=== PATIENT | male | born 1985 | race African-American/Black ===

== ENCOUNTER 2017-09-27 15:42 | Inpatient (IN) | payer OTHER ==
[2017-09-27 17:46] VITALS: BMI 22.5
--- NOTE | 2017-09-27 20:48 | HP ---
Admission ROS [facility] - [facility] Chief Complaint: 31 years old male seeking admission to Rehab. Allergies/Adverse Reactions: Allergies Allergy/AdvReac Type Severity Reaction Status Date / Time lactose Allergy Verified 09/27/17 20:17 FRUIT Allergy Uncoded 09/27/17 20:17 History of Present Illness: 31 years old male with a long history of alcohol and cocaine dependence is seeking admission to Rehab. Patient has been in Rehab at [facility]. This is his first admission to [facility]. He has medical history of hyperthyroidism, anxiety and depression. He denies suicide attempt and suicidal ideation at this time. Exam Limitations: No Limitations - Ebola screening Have you traveled outside of the country in the last 21 days: No (N) Have you had contact with anyone from an Ebola affected area: No Have you been sick,other than usual withdrawal symptoms: No Do you have a fever: No - Review of Systems Constitutional: No Symptoms Reported EENT: reports: No Symptoms Reported Respiratory: reports: No Symptoms reported Cardiac: reports: No Symptoms Reported GI: reports: No Symptoms Reported : reports: No Symptoms Reported Musculoskeletal: reports: No Symptoms Reported Integumentary: reports: No Symptoms Reported Neuro: reports: No Symptoms reported Endocrine: reports: No Symptoms Reported Hematology: reports: No Symptoms Reported Psychiatric: reports: No Sypmtoms Reported, Orientated x3 Other Systems: Reviewed and Negative Patient History - Patient Medical History Hx Anemia: No Hx Asthma: No Hx Chronic Obstructive Pulmonary Disease (COPD): No Hx Cancer: No Hx Cardiac Disorders: No Hx Congestive Heart Failure: No Hx Hypertension: No Hx Hypercholesterolemia: No HX Cerebrovascular Accident: No Hx Seizures: No Hx Diabetes: No Hx Gastrointestinal Disorders: No Hx Liver Disease: No Hx Genitourinary Disorders: No Hx Sexually Transmitted Disorders: No Hx Renal Disease (ESRD): No Hx Thyroid Disease: Yes (Hyperthroidism - Not on medication) Hx Human Immunodeficiency Virus (HIV): No (Negative August 2017) Hx Hepatitis C: No Hx Depression: Yes (Not on medication) Hx Suicide Attempt: No (Denies suicide attempt and suicidal ideation at this time) Hx Bipolar Disorder: Yes (Not on medicatyion) Hx Schizophrenia: No Other Medical History: ANXIETY, PTSD - Not on medication - Patient Surgical History Past Surgical History: Yes Hx Neurologic Surgery: No Hx Cataract Extraction: No Hx Cardiac Surgery: No Hx Lung Surgery: No Hx Abdominal Surgery: No Hx Appendectomy: No Hx Cholecystectomy: No Hx Genitourinary Surgery: No Hx Section: No Hx Orthopedic Surgery: Yes (LEFT HAND SURGERY JULY 2017) Hx Hysterectomy: No Anesthesia Reaction: No - PPD History Previous Implant?: Yes Documented Results: Negative w/o proof Implanted On Prior [facility] Admission?: No PPD to be Administered?: Yes - Reproductive History Patient is a Female of Child Bearing Age (11 -55 yrs old): No (Male) - Smoking Cessation Smoking history: Current every day smoker Have you smoked in the past 12 months: Yes Aproximately how many cigarettes per day: 3 Hx Chewing Tobacco Use: No Initiated information on smoking cessation: Yes 'Breaking Loose' booklet given: 09/27/17 - Substance & Tx. History Hx Alcohol Use: Yes Hx Substance Use: No Substance Use Type: Alcohol Hx Substance Use Treatment: Yes ([facility]) - Substances Abused Alcohol Route: Oral Frequency: Daily Amount used: 20 x 24 oz. of BEER Age of first use: 11 Date of Last Use: 09/26/17 Family Disease History - Family Disease History Family History: Denies Admission Physical Exam [facility] - Vital Signs Vital Signs: Vital Signs - 24 hr 09/27/17 17:43 Temperature 97.5 F L Pulse Rate 66 Respiratory 18 Rate Blood Pressure 134/86 - Physical General Appearance: Yes: No Apparent Distress, Appropriately Dressed HEENTM: Yes: Within Normal Limits, EOMI, Normal ENT Inspection, Normocephalic, Normal Voice, MARTI Respiratory: Yes: Lungs Clear, Normal Breath Sounds, No Respiratory Distress Neck: Yes: Supple Breast: Yes: Breast Exam Deferred Cardiology: Yes: Regular Rhythm, Regular Rate Abdominal: Yes: Normal Bowel Sounds Genitourinary: Yes: Within Normal Limits Back: Yes: Normal Inspection Musculoskeletal: Yes: Within Normal Limits Extremities: Yes: Normal Inspection Neurological: Yes: Alert, Normal Mood/Affect Integumentary: Yes: Warm Lymphatic: Yes: Within Normal Limits - Diagnostic (1) Uncomplicated alcohol dependence Current Visit: Yes Status: Chronic (2) Depression Current Visit: Yes Status: Chronic Qualifiers: Depression Type: unspecified Qualified Code(s): F32.9 - Major depressive disorder, single episode, unspecified (3) Anxiety Current Visit: Yes Status: Chronic (4) Hyperthyroidism Current Visit: Yes Status: Chronic S Breath Alcohol Content Breath Alcohol Content: 0 Urine Drug Screen - Results Drug Screen Negative: No Urine Drug Screen Results: THC-Marijuana, LENCHO-Cocaine Inpatient Rehab Admission - Initial Determination Are CD services needed?: No Free of communicable disease: Yes Not in need of hospitalization: Yes - Rehab Admission Criteria Previous failed treatment: Yes Poor recovery environment: Yes Comorbidities: Yes Lacks judgement: Yes Patient is meeting Inpatient Rehab admission criteria:: No
[2017-09-27] MEDS ORDERED: MAG HYDROX/AL HYDROX/SIMETH 30 ML UNIT-DOSE CUP PO PRN (22:51)
[2017-09-27] MEDS ORDERED: ACETAMINOPHEN 325 MG TABLET (FP) PO PRN (22:51)
[2017-09-27] MEDS ORDERED: P-EPHED 60MG/TRIPROLIDI 2.5MG TABLET PO PRN (22:51)
[2017-09-27] MEDS ORDERED: NICOTINE POLACRILEX 2 MG GUM BC PRN (22:51)
[2017-09-27] MEDS ORDERED: MAGNESIUM HYDROX 2400MG/30ML ORAL SUSPENSION 30 ML CUP PO PRN (22:51)
[2017-09-27] MEDS ORDERED: guaiFENesin/D-METHORPHAN HB 10 ML UNIT-DOSE CUPS PO PRN (22:51)
[2017-09-27] MEDS ORDERED: LOPERAMIDE HCL 2 MG CAPSULE PO PRN (22:51)
[2017-09-27] MEDS ORDERED: MENTHOL/PHENOL 1 EACH UD MM PRN (22:51)
[2017-09-27] MEDS ORDERED: IBUPROFEN 400 MG TABLET (FP) PO PRN (22:51)
[2017-09-27] MEDS ORDERED: MAGNESIUM CITRATE 300 ML BOTTLE PO PRN (22:51)
[2017-09-27] MEDS ORDERED: TUBERCULIN PPD 5 TU/0.1ML VIAL ID ONE (23:47)
[2017-09-28] MEDS: NICOTINE 14 MG/24 HOURS TOPICAL PATCH TD SCH (10:01)
[2017-09-28] MEDS: PRENATAL VITAMINS W/ FOLIC ACID TABLET (FP) PO SCH (10:01)
[2017-09-28 10:26] LABS: HEMATOCRIT 39.3 % (35.4-49); MCHC 33.2 g/dl (32.0-35.9); MEAN CELL VOLUME 87.2 fl (80-96); MEAN PLT VOLUME 8.8 fl (7.5-11.1); PLATELET COUNT 197 K/MM3 (134-434); WHITE BLOOD COUNT 3.9 K/mm3 (4.0-10.0)
[2017-09-28 10:47] LABS: CHLORIDE 103 mmol/L (98-107); POTASSIUM 4.3 mmol/L (3.5-5.1); SODIUM 139 mmol/L (136-145)
[2017-09-28 10:53] LABS: URINE APPEARANCE CLEAR; URINE BILIRUBIN NEGATIVE (<2.0 mg/dL); URINE COLOR LTYELLOW; URINE GLUCOSE (UA) NEGATIVE (NEGATIVE); URINE KETONE NEGATIVE (NEGATIVE); URINE LEUK ESTERASE TRACE (NEGATIVE); URINE NITRITE NEGATIVE (NEGATIVE); URINE PROTEIN NEGATIVE (NEGATIVE); URINE UROBILINOGEN NEGATIVE mg/dL (0.2-1.0)
[2017-09-28 10:57] LABS: EPI CELLS RARE /HPF (FEW); URINE MUCUS RARE
[2017-09-28 11:13] LABS: ALBUMIN 3.5 g/dl (3.4-5.0); ALK PHOS 55 U/L (45-117); ANION GAP 4 (8-16); BILIRUBIN,TOTAL 0.3 mg/dL (0.2-1.0); BLOOD UREA NITROGEN 15 mg/dL (7-18); CALCIUM 9.1 mg/dL (8.5-10.1); CO2 32 mmol/L (21-32); CREATININE 1.3 mg/dL (0.7-1.3); GLUCOSE,RANDOM 81 mg/dL (74-106); SGOT/AST 24 U/L (15-37); SGPT/ALT 33 U/L (12-78); TOT PROT 6.6 g/dl (6.4-8.2)
[2017-09-28] MEDS: MELATONIN 5 MG TABLETS PO PRN (21:46)
[2017-09-28] MEDS: THIAMINE HCL 100 MG TABLET (FP) PO SCH (21:46)
--- NOTE | 2017-09-29 08:56 | EKG ---
Test Reason : Blood Pressure : / mmHG Vent. Rate : 068 BPM Atrial Rate : 068 BPM P-R Int : 142 ms QRS Dur : 088 ms QT Int : 402 ms P-R-T Axes : 015 051 059 degrees QTc Int : 427 ms NORMAL SINUS RHYTHM NORMAL ECG NO PREVIOUS ECGS AVAILABLE Confirmed by PRABHAKAR GOTTI, LA ([id number]) on 09/29/2017 8:55:29 AM Referred By: Confirmed By:LA RADOFRD MD
[2017-09-29] MEDS: PRENATAL VITAMINS W/ FOLIC ACID TABLET (FP) PO SCH (10:12)
[2017-09-29] MEDS: NICOTINE 14 MG/24 HOURS TOPICAL PATCH TD SCH (10:13)
[2017-09-29] MEDS: MELATONIN 5 MG TABLETS PO PRN (21:43)
[2017-09-29] MEDS: THIAMINE HCL 100 MG TABLET (FP) PO SCH (21:44)
[2017-09-30] MEDS: NICOTINE 14 MG/24 HOURS TOPICAL PATCH TD SCH (09:57)
[2017-09-30] MEDS: PRENATAL VITAMINS W/ FOLIC ACID TABLET (FP) PO SCH (09:57)
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
[2017-09-30] MEDS: THIAMINE HCL 100 MG TABLET (FP) PO SCH (21:12)
[2017-09-30] MEDS: MELATONIN 5 MG TABLETS PO PRN (21:12)
[2017-09-30] MEDS ORDERED: QUEtiapine FUMARATE 200 MG TABLET PO SCH (22:00)
[2017-09-30] MEDS ORDERED: MIRTAZAPINE 15 MG TABLET (FP) PO SCH (22:00)
[2017-10-01 06:57] VITALS: BP 126/68; PULSE 70; TEMP 97.6
[2017-10-01] MEDS: NICOTINE 14 MG/24 HOURS TOPICAL PATCH TD SCH (10:38)
[2017-10-01] MEDS: PRENATAL VITAMINS W/ FOLIC ACID TABLET (FP) PO SCH (10:39)
== END 2017-10-01 12:33 | disposition left against medical advice (07) | DRG 770 ==
LOC: YASAS 15:42 → Y5N 19:06 → Y3W 21:57
PROVIDERS: ADMIT Psychiatry & Neurology Psychiatry; ATTEND Psychiatry & Neurology Psychiatry
PROC: HZ42ZZZ Group Counseling for Substance Abuse Treatment, Cognitive-Behavioral (ICD-10-PCS; principal; 2017-09-27)
DX: F11.20 Opioid dependence, uncomplicated (principal); F10.20 Alcohol dependence, uncomplicated; F14.20 Cocaine dependence, uncomplicated; F17.210 Nicotine dependence, cigarettes, uncomplicated; F31.9 Bipolar disorder, unspecified; F41.9 Anxiety disorder, unspecified; F32.9 Major depressive disorder, single episode, unspecified; E05.90 Thyrotoxicosis, unspecified without thyrotoxic crisis or storm
CPT/HCPCS: 36415; 80053; 81003; 81015; 85027; 86593; 93005; 93010

== ENCOUNTER 2019-11-30 14:50 | Inpatient (IN) | payer OTHER ==
--- NOTE | 2019-11-30 15:19 | BHS.RME ---
Substance Use & Tx History - Substance Use History Alcohol Substance amount: 3 beers x 24 ounce Frequency of use: Daily Substance route: Oral, Vaping (t) Cocaine-Crack Substance amount: $1000. Frequency of use: Daily Substance route: Smoking Date of Last Use: 11/30/19 Nicotine Substance amount: 3 cigs Frequency of use: Daily Substance route: Smoking Date of Last Use: 11/30/19 - Last Treatment Date of last treatment: 2018 rehab x 4 days Where was last treatment: Rehab Physical/Psych/Mental Status - Behavior General Behavior: Increased activity (restlessness, agitation) Eye Contact: Normal - Cooperativeness Cooperativeness: Cooperative - Thinking Thought Processes: Tight Thought content: Future oriented - Physical Health Problems Is patient presently having any pain?: No Does patient presently have any injuries (include location): No Does patient currently have a fever: No CIWA Nausea/Vomitin-No Nausea/No Vomiting Muscle Tremors: None Anxiety: 1-Mildly Anxious Agitation: 1-Slight > Activity Paroxysmal Sweats: No Perspiration Orientation: 0-Oriented Tacttile Disturbances: 0-None Auditory Disturbances: 1-Very Mild Visual Disturbances: 0-None Headache: 0-None Present CIWA-Ar Total Score: 3
--- OUTSIDE RECORDS SUMMARY | 2019-11-30 17:28 | XMS ---
:1985 Author Organization [facility] Support Name Relationship Address Phone claduine hernandez Unavailable [id number] [place] [address] Re-disclosure Warning The records that you are about to access may contain information from federally- assisted alcohol or drug abuse programs. If such information is present, then the following federally mandated warning applies: This information has been disclosed to you from records protected by federal confidentiality rules (42 CFR part 2). The federal rules prohibit you from making any further disclosure of this information unless further disclosure is expressly permitted by the written consent of the person to whom it pertains or as otherwise permitted by 42 CFR part 2. A general authorization for the release of medical or other information is NOT sufficient for this purpose. The Federal rules restrict any use of the information to criminally investigate or prosecute any alcohol or drug abuse patient.The records that you are about to access may contain highly sensitive health information, the redisclosure of which is protected by Article 27-F of the [facility] Public Health law. If you continue you may haveaccess to information: Regarding HIV / AIDS; Provided by facilities licensed or operated by the [facility] Office of Mental Health; or Provided by the [facility] Office for People With Developmental Disabilities. If such information is present, then the following [facility] mandated warning applies: This information has been disclosed to you from confidential records which are protected by state law. State law prohibits you from making any further disclosure of this information without the specific written consent of the person to whom it pertains, or as otherwise permitted by law. Any unauthorized further disclosure in violation of state law may result in a fine or fpc sentence or both. A general authorization for the release of medical or other information is NOT sufficient authorization for further disclosure. Allergies and Adverse Reactions Type Description Substance Reaction Status Data Source(s ) Drug allergy walnuts/almonds Drug allergy anaphylaxis Active eCW3 ([facility]) Drug allergy strawberries Drug allergy anaphylaxis Active eCW3 ([facility]) Drug allergy apples Drug allergy anaphylaxis Active eCW3 ([facility]) Drug allergy walnuts/almonds Drug allergy anaphylaxis Active eCW3 ([facility]) Drug allergy strawberries Drug allergy anaphylaxis Active eCW3 ([facility]) Drug allergy apples Drug allergy anaphylaxis Active eCW3 ([facility]) Drug allergy walnuts/almonds Drug allergy anaphylaxis Active eCW3 ([facility]) Drug allergy strawberries Drug allergy anaphylaxis Active eCW3 ([facility]) Drug allergy apples Drug allergy anaphylaxis Active eCW3 ([facility]) Drug allergy walnuts/almonds Drug allergy anaphylaxis Active eCW3 ([facility]) Drug allergy strawberries Drug allergy anaphylaxis Active eCW3 ([facility]) Drug allergy apples Drug allergy anaphylaxis Active eCW3 ([facility]) Drug allergy walnuts/almonds Drug allergy anaphylaxis Active eCW3 ([facility]) Drug allergy strawberries Drug allergy anaphylaxis Active eCW3 ([facility]) Drug allergy apples Drug allergy anaphylaxis Active eCW3 ([facility]) Drug allergy walnuts/almonds Drug allergy anaphylaxis Active eCW3 ([facility]) Drug allergy strawberries Drug allergy anaphylaxis Active eCW3 ([facility]) Drug allergy apples Drug allergy anaphylaxis Active eCW3 ([facility]) Drug allergy walnuts/almonds Drug allergy anaphylaxis Active eCW3 ([facility]) Drug allergy strawberries Drug allergy anaphylaxis Active eCW3 ([facility]) Drug allergy apples Drug allergy anaphylaxis Active eCW3 ([facility]) Drug allergy walnuts/almonds Drug allergy anaphylaxis Active eCW3 ([facility]) Drug allergy strawberries Drug allergy anaphylaxis Active eCW3 ([facility]) Drug allergy apples Drug allergy anaphylaxis Active eCW3 ([facility]) Drug allergy walnuts/almonds Drug allergy anaphylaxis Active eCW3 ([facility]) Drug allergy strawberries Drug allergy anaphylaxis Active eCW3 ([facility]) Drug allergy apples Drug allergy anaphylaxis Active eCW3 ([facility]) Drug allergy walnuts/almonds Drug allergy anaphylaxis Active eCW3 ([facility]) Drug allergy strawberries Drug allergy anaphylaxis Active eCW3 ([facility]) Drug allergy apples Drug allergy anaphylaxis Active eCW3 ([facility]) Drug allergy walnuts/almonds Drug allergy anaphylaxis Active eCW3 ([facility]) Drug allergy strawberries Drug allergy anaphylaxis Active eCW3 ([facility]) Drug allergy apples Drug allergy anaphylaxis Active eCW3 ([facility]) Drug allergy walnuts/almonds Drug allergy anaphylaxis Active eCW3 ([facility]) Drug allergy strawberries Drug allergy anaphylaxis Active eCW3 ([facility]) Drug allergy apples Drug allergy anaphylaxis Active eCW3 ([facility]) Drug allergy walnuts/almonds Drug allergy anaphylaxis Active eCW3 ([facility]) Drug allergy strawberries Drug allergy anaphylaxis Active eCW3 ([facility]) Drug allergy apples Drug allergy anaphylaxis Active eCW3 ([facility]) Encounters Encounter Providers Location Date Indications Data Source(s ) (DentTx) Dental [facility] 01/01/2019 eCW3 ([facility] A28 12:00:00 AM [facility] EST - Care) 01/01/2019 12:00:00 AM EST Est [facility] 11/19/2018 eCW3 ([id number] A28 12:00:00 AM [facility] y Indiv 30 min EDT - Care) 11/19/2018 12:00:00 AM EDT Outpatient [facility] 2018 eCW3 ([facility] A28 12:00:00 AM [facility] EDT - Care) 2018 12:00:00 AM EDT Outpatient [facility] 11/10/2018 eCW3 ([facility] A28 12:00:00 AM [facility] EDT - Care) 11/10/2018 12:00:00 AM EDT Outpatient [facility] 11/08/2018 eCW3 ([facility] A28 12:00:00 AM [facility] EDT - Care) 11/08/2018 12:00:00 AM EDT Outpatient [facility] 11/07/2018 eCW3 ([facility] 12:00:00 AM [facility] EDT - Care) 11/07/2018 12:00:00 AM EDT (DENTAL) Dental [facility] 10/23/2018 eCW3 ([facility] A28 12:00:00 AM [facility] EDT - Care) 10/23/2018 12:00:00 AM EDT Outpatient [facility] 10/13/2018 eCW3 ([facility] 12:00:00 AM [facility] EDT - Care) 10/13/2018 12:00:00 AM EDT Outpatient [facility] 09/11/2018 eCW3 ([facility] 12:00:00 AM [facility] EDT - Care) 09/11/2018 12:00:00 AM EDT Outpatient [facility] 09/10/2018 eCW3 ([facility] 12:00:00 AM [facility] EDT - Care) 09/10/2018 12:00:00 AM EDT Outpatient [facility] 08/08/2018 eCW3 ([facility] 12:00:00 AM [facility] EDT - Care) 08/08/2018 12:00:00 AM EDT Outpatient [facility] 06/03/2018 eCW3 ([facility] 12:00:00 AM [facility] EDT - Care) 06/03/2018 12:00:00 AM EDT New Psych [facility] 05/28/2018 eCW3 ([facility] 12:00:00 AM [facility] EDT - Care) 05/28/2018 12:00:00 AM EDT Immunizations Vaccine Date Status Description Data Source(s) New in 2011. IIV4 11/08/2018 10:13:00 completed eC W3 ([facility]T [facility]) New in 2011. IIV4 11/08/2018 10:13:00 completed eC W3 ([facility]) New in 2011. IIV4 11/08/2018 10:13:00 completed eC W3 ([facility]) New in 2011. IIV4 11/08/2018 10:13:00 completed eC W3 ([facility]) Hep A, adult 02/27/2012 01:54:32 completed eCW3 ([facility] EST [facility]) Hep A, adult 02/27/2012 01:54:32 completed eCW3 ([facility] EST [facility]) Hep A, adult 02/27/2012 01:54:32 completed eCW3 ([facility] EST [facility]) Tdap 02/27/2012 01:54:06 completed eCW3 ([facility] EST Health Care) Tdap 02/27/2012 01:54:06 completed eCW3 ([facility] EST Health Care) Tdap 02/27/2012 01:54:06 completed eCW3 ([facility] EST Health Care) Medications Medication Brand Start Product Dose Route Administrative Pharmacy [facility] Indications Reaction Description Data Name Date Form Instructions Instructions Source(s) Gauze UNK 06/02/ active Gauze eCW3 Bandages - 2020 Bandages - ([facility] 12:00: [facility] 00 AM Health EDT Care) Gauze Gauze 06/02/ active Gauze eCW3 Bandage 3" Bandag 2020 Bandage 3" - ([facility] - e 3" - 12:00: [facility] 00 AM Health EDT Care) Gauze UNK 06/02/ active Gauze eCW3 Bandages - 2020 Bandages - ([facility] 12:00: [facility] 00 AM Health EDT Care) Gauze Gauze 06/02/ active Gauze eCW3 Bandage 3" Bandag 2020 Bandage 3" - ([facility] - e 3" - 12:00: [facility] 00 AM Health EDT Care) Gauze UNK 06/02/ active Gauze eCW3 Bandages - 2020 Bandages - ([facility] 12:00: [facility] 00 AM Health EDT Care) Gauze UNK 06/02/ active Gauze eCW3 Bandages - 2020 Bandages - ([facility] 12:00: [facility] 00 AM Health EDT Care) Gauze UNK 06/02/ active Gauze eCW3 Bandages - 2020 Bandages - ([facility] 12:00: [facility] 00 AM Health EDT Care) Gauze UNK 06/02/ active Gauze eCW3 Bandages - 2020 Bandages - ( dson 12:00: [facility] 00 AM Health EDT Care) bacitracin Bacitr .0 active Bacitrac in eCW3 zinc 0.5 acin 2020 {appl Zinc 500 ([facility] UNT/MG Zinc 12:00: icati UNIT/GM [place] Topical 500 00 AM on} Health Ointment UNIT/G EDT Care) Bacitracin M Zinc 500 UNIT/GM Gauze UNK 06/02/ active Gauze eCW3 Bandages - 2020 Bandages - ([facility] 12:00: [facility] 00 AM Health EDT Care) Naproxen Naprox .0 active Naproxen 2 50 eCW3 250 MG Oral en 250 2019 {tabl MG ([facility] Tablet MG 12:00: et_wi [place] 00 AM th_fo Health EDT od_or Care) _milk } Gauze Gauze 06/02/ active Gauze eCW3 Bandage 3" Bandag 2020 Bandage 3" - ([facility] - e 3" - 12:00: [facility] 00 AM Health EDT Care) Gauze UNK 06/02/ active Gauze eCW3 Bandages - 2020 Bandages - ( dson 12:00: [facility] 00 AM Health EDT Care) Gauze UNK 06/02/ active Gauze eCW3 Bandages - 2020 Bandages - ( dson 12:00: [facility] 00 AM Health EDT Care) Gauze Gauze 06/02/ active Gauze eCW3 Bandage 3" Bandag 2020 Bandage 3" - ([facility] - e 3" - 12:00: [facility] 00 AM Health EDT Care) Gauze Gauze 06/02/ active Gauze eCW3 Bandage 3" Bandag 2020 Bandage 3" - ([facility] - e 3" - 12:00: [facility] 00 AM Health EDT Care) Gauze Gauze 06/02/ active Gauze eCW3 Bandage 3" Bandag 2020 Bandage 3" - ([facility] - e 3" - 12:00: [facility] 00 AM Health EDT Care) Gauze UNK 06/02/ active Gauze eCW3 Bandages - 2020 Bandages - ([facility] 12:00: [facility] 00 AM Health EDT Care) Gauze Gauze 06/02/ active Gauze eCW3 Bandage 3" Bandag 2020 Bandage 3" - ([facility] - e 3" - 12:00: [facility] 00 AM Health EDT Care) Gauze UNK 06/02/ active Gauze eCW3 Bandages - 2020 Bandages - ([facility] 12:00: [facility] 00 AM Health EDT Care) Gauze Gauze 06/02/ active Gauze eCW3 Bandage 3" Bandag 2020 Bandage 3" - ([facility] - e 3" - 12:00: [facility] 00 AM Health EDT Care) Gauze Gauze 06/02/ active Gauze eCW3 Bandage 3" Bandag 2020 Bandage 3" - ([facility] - e 3" - 12:00: [facility] 00 AM Health EDT Care) Gauze Gauze 06/02/ active Gauze eCW3 Bandage 3" Bandag 2020 Bandage 3" - ([facility] - e 3" - 12:00: [facility] 00 AM Health EDT Care) Gauze Gauze 06/02/ active Gauze eCW3 Bandage 3" Bandag 2020 Bandage 3" - ([facility] - e 3" - 12:00: [facility] 00 AM Health EDT Care) Nicotine 4 Nicotr 11/08/ active Nicotrol 10 eCW3 MG/ACTUAT ol 10 2019 MG ([facility] Inhalant MG 12:00: [facility] Solution 00 AM Health [Nicotrol] EDT Care) Nicotrol 10 MG Naltrexone Vivitr 11/08/ 4.0 active Vivitrol 380 eCW3 112 MG/ML ol 380 2019 {ml} MG ([facility] Injectable MG 12:00: [facility] Suspension 00 AM Health [Vivitrol] EDT Care) Vivitrol 380 MG Nicotine 4 Nicotr 11/08/ active Nicotrol 10 eCW3 MG/ACTUAT ol 10 2019 MG ([facility] Inhalant MG 12:00: [place] Solution 00 AM Health [Nicotrol] EDT Care) Nicotrol 10 MG Nicotine 4 Nicotr 11/08/ active Nicotrol 10 eCW3 MG/ACTUAT ol 10 2019 MG ([facility] Inhalant MG 12:00: [facility] Solution 00 AM Health [Nicotrol] EDT Care) Nicotrol 10 MG Naltrexone Vivitr 4.0 active Vivitrol 380 eCW3 112 MG/ML ol 380 2019 {ml} MG ([facility] Injectable MG 12:00: [place] Suspension 00 AM Health [Vivitrol] EDT Care) Vivitrol 380 MG Naltrexone Vivitr 4.0 active Vivitrol 380 eCW3 112 MG/ML ol 380 2018 {ml} MG ([facility] Injectable MG 12:00: [place] Suspension 00 AM Health [Vivitrol] EDT Care) Vivitrol 380 MG Naltrexone Vivitr 4.0 active Vivitrol 380 eCW3 112 MG/ML ol 380 2018 {ml} MG ([facility] Injectable MG 12:00: [place] Suspension 00 AM Health [Vivitrol] EDT Care) Vivitrol 380 MG Nicotine 4 Nicotr 11/08/ active Nicotrol 10 eCW3 MG/ACTUAT ol 10 2019 MG ([facility] Inhalant MG 12:00: [facility] Solution 00 AM Health [Nicotrol] EDT Care) Nicotrol 10 MG Naltrexone Vivitr 4.0 active Vivitrol 380 eCW3 112 MG/ML ol 380 2019 {ml} MG ([facility] Injectable MG 12:00: [place] Suspension 00 AM Health [Vivitrol] EDT Care) Vivitrol 380 MG Nicotine 4 Nicotr 11/08/ active Nicotrol 10 eCW3 MG/ACTUAT ol 10 2019 MG ([facility] Inhalant MG 12:00: [facility] Solution 00 AM Health [Nicotrol] EDT Care) Nicotrol 10 MG Nicotine 4 Nicotr 11/08/ active Nicotrol 10 eCW3 MG/ACTUAT ol 10 2019 MG ([facility] Inhalant MG 12:00: [facility] Solution 00 AM Health [Nicotrol] EDT Care) Nicotrol 10 MG Naltrexone Vivitr 4.0 active Vivitrol 380 eCW3 112 MG/ML ol 380 2019 {ml} MG ([facility] Injectable MG 12:00: [facility] Suspension 00 AM Health [Vivitrol] EDT Care) Vivitrol 380 MG Naltrexone Vivitr 4.0 active Vivitrol 380 eCW3 112 MG/ML ol 380 2019 {ml} MG ([facility] Injectable MG 12:00: [facility] Suspension 00 AM Health [Vivitrol] EDT Care) Vivitrol 380 MG Naltrexone Vivitr 11/08/ 4.0 active Vivitrol 380 eCW3 112 MG/ML ol 380 2019 {ml} MG ([facility] Injectable MG 12:00: [facility] Suspension 00 AM Health [Vivitrol] EDT Care) Vivitrol 380 MG Naltrexone Vivitr 4.0 active Vivitrol 380 eCW3 112 MG/ML ol 380 2019 {ml} MG ([facility] Injectable MG 12:00: [facility] Suspension 00 AM Health [Vivitrol] EDT Care) Vivitrol 380 MG Naltrexone Vivitr 4.0 active Vivitrol 380 eCW3 112 MG/ML ol 380 2019 {ml} MG ([facility] Injectable MG 12:00: [facility] Suspension 00 AM Health [Vivitrol] EDT Care) Vivitrol 380 MG Nicotine 4 Nicotr 11/08/ active Nicotrol 10 eCW3 MG/ACTUAT ol 10 2019 MG ([facility] Inhalant MG 12:00: [facility] Solution 00 AM Health [Nicotrol] EDT Care) Nicotrol 10 MG Nicotine 4 Nicotr 11/08/ active Nicotrol 10 eCW3 MG/ACTUAT ol 10 2019 MG ([facility] Inhalant MG 12:00: [facility] Solution 00 AM Health [Nicotrol] EDT Care) Nicotrol 10 MG Nicotine 4 Nicotr 11/08/ active Nicotrol 10 eCW3 MG/ACTUAT ol 10 2019 MG ([facility] Inhalant MG 12:00: [facility] Solution 00 AM Health [Nicotrol] EDT Care) Nicotrol 10 MG Nicotine 4 Nicotr 11/08/ active Nicotrol 10 eCW3 MG/ACTUAT ol 10 2019 MG ([facility] Inhalant MG 12:00: [facility] Solution 00 AM Health [Nicotrol] EDT Care) Nicotrol 10 MG Naltrexone Vivitr 11/08/ 4.0 active Vivitrol 380 eCW3 112 MG/ML ol 380 2019 {ml} MG ([facility] Injectable MG 12:00: [facility] Suspension 00 AM Health [Vivitrol] EDT Care) Vivitrol 380 MG Nicotine 4 Nicotr 11/08/ active Nicotrol 10 eCW3 MG/ACTUAT ol 10 2019 MG ([facility] Inhalant MG 12:00: [facility] Solution 00 AM Health [Nicotrol] EDT Care) Nicotrol 10 MG Nicotine 4 Nicotr 11/08/ active Nicotrol 10 eCW3 MG/ACTUAT ol 10 2019 MG ([facility] Inhalant MG 12:00: [facility] Solution 00 AM Health [Nicotrol] EDT Care) Nicotrol 10 MG Naltrexone Vivitr 4.0 active Vivitrol 380 eCW3 112 MG/ML ol 380 2019 {ml} MG ([facility] Injectable MG 12:00: [place] Suspension 00 AM Health [Vivitrol] EDT Care) Vivitrol 380 MG Nicotine 4 Nicotr 11/08/ active Nicotrol 10 eCW3 MG/ACTUAT ol 10 2019 MG ([facility] Inhalant MG 12:00: [facility] Solution 00 AM Health [Nicotrol] EDT Care) Nicotrol 10 MG Naltrexone Vivitr 4.0 active Vivitrol 380 eCW3 112 MG/ML ol 380 2019 {ml} MG ([facility] Injectable MG 12:00: [facility] Suspension 00 AM Health [Vivitrol] EDT Care) Vivitrol 380 MG meloxicam Meloxi .0 active Meloxicam 15 eCW3 15 MG Oral cam 15 2018 {tabl MG ([facility] Tablet MG 12:00: et} [facility] Meloxicam 00 AM Health 15 MG EDT Care) [place] .0 active [place] eCW 3 Carbonate m 2016 {tabl Carbonate ([facility] 300 MG Oral Carbon 12:00: et} 300 MG Ri bonita Tablet ate 00 AM Health 300 MG EDT Care) [place] .0 active [place] eCW 3 Carbonate m 2016 {tabl Carbonate ([facility] 300 MG Oral Carbon 12:00: et} 300 MG Ri bon[place] Tablet ate 00 AM Health 300 MG EDT Care) [place] .0 active [place] eCW 3 Carbonate m 2016 {tabl Carbonate ([facility] 300 MG Oral Carbon 12:00: et} 300 MG Ri bon[place] Tablet ate 00 AM Health 300 MG EDT Care) [place] .0 active [place] eCW 3 Carbonate m 2016 {tabl Carbonate ([facility] 300 MG Oral Carbon 12:00: et} 300 MG [place] bon[place] Tablet ate 00 AM Health 300 MG EDT Care) 24 HR Wellbu 1.0 active Wellbutrin eC W3 Bupropion twyla 2017 {tabl XL 150 MG ([facility] Hydrochlori XL 150 12:00: et_in [place] de 150 MG MG 00 AM _the_ Health Extended EDT morni Care) Release ng} Oral Tablet [Wellbutrin ] Wellbutrin XL 150 MG 24 HR Wellbu .0 active Wellbutrin eC W3 Bupropion twyla 2017 {tabl XL 150 MG ([facility] Hydrochlori XL 150 12:00: et_in [place] de 150 MG MG 00 AM _the_ Health Extended EDT morni Care) Release ng} Oral Tablet [Wellbutrin ] Wellbutrin XL 150 MG Clonazepam Clonaz .0 active Clonazep am 2 eCW3 2 MG Oral epam 2 2016 {tabl MG ([facility] Tablet MG 12:00: et} [facility] 00 AM Health EDT Care) Clonazepam Clonaz .0 active Clonazep am 2 eCW3 2 MG Oral epam 2 2016 {tabl MG ([facility] Tablet MG 12:00: et} [facility] 00 AM Health EDT Care) buspirone BusPIR .0 active BusPIRone eCW3 hydrochlori one 2015 {tabl HCl 5 MG ([facility] de 5 MG HCl 5 12:00: et} [facility] Oral Tablet MG 00 AM [facility] BusPIRone EST Care) HCl 5 MG buspirone BusPIR .0 active BusPIRone eCW3 hydrochlori one 2016 {tabl HCl 5 MG ([facility] de 5 MG HCl 5 12:00: et} [place] Oral Tablet MG 00 AM [facility] BusPIRone EST Care) HCl 5 MG buspirone BusPIR .0 active BusPIRone eCW3 hydrochlori one 2015 {tabl HCl 5 MG ([facility] de 5 MG HCl 5 12:00: et} [place] Oral Tablet MG 00 AM [facility] BusPIRone EST Care) HCl 5 MG buspirone BusPIR .0 active BusPIRone eCW3 hydrochlori one 2015 {tabl HCl 5 MG ([facility] de 5 MG HCl 5 12:00: et} [place] Oral Tablet MG 00 AM Health BusPIRone EST [facility]) HCl 5 MG Zantac 150 UNK 1.0 active Zantac 150 eCW3 MG 2016 {tabl MG ([facility] 12:00: et} [facility] 00 AM Health EST Care) Zantac 150 UNK 1.0 active Zantac 150 eCW3 MG 2016 {tabl MG ([facility] 12:00: et} [facility] 00 AM Health EST Care) Zantac 150 UNK .0 active Zantac 150 eCW3 MG 2016 {tabl MG ([facility] 12:00: et} [facility] 00 AM Health EST Care) Zantac 150 UNK 1.0 active Zantac 150 eCW3 MG 2016 {tabl MG ([facility] 12:00: et} [facility] 00 AM Health EST Care) EPINEPHrine EPINEP 12/03/ active EPINEPH rine eCW3 0.3 Hrine 2014 0.3 MG/0.3ML ([facility] MG/0.3ML 0.3 12:00: [facility] MG/0.3 00 AM Health EDT Care) EPINEPHrine EPINEP 12/03/ active EPINEPH rine eCW3 0.3 Hrine 2014 0.3 MG/0.3ML ([facility] MG/0.3ML 0.3 12:00: [facility] MG/0.3 00 AM Health EDT Care) EPINEPHrine EPINEP 12/03/ active EPINEPH rine eCW3 0.3 Hrine 2014 0.3 MG/0.3ML ([facility] MG/0.3ML 0.3 12:00: [place] MG/0.3 00 AM Health EDT Care) EPINEPHrine EPINEP 12/03/ active EPINEPH rine eCW3 0.3 Hrine 2014 0.3 MG/0.3ML ([facility] MG/0.3ML 0.3 12:00: [place] MG/0.3 00 AM Health EDT Care) EPINEPHrine EPINEP 12/03/ active EPINEPH rine eCW3 0.3 Hrine 2014 0.3 MG/0.3ML ([facility] MG/0.3ML 0.3 12:00: [place] MG/0.3 00 AM Health EDT Care) EPINEPHrine EPINEP 12/03/ active EPINEPH rine eCW3 0.3 Hrine 2014 0.3 MG/0.3ML ([facility] [facility] MG/0.3ML 0.3 12:00: [place] MG/0.3 00 AM Health ML EDT Care) EPINEPHrine EPINEP 12/03/ active EPINEPH rine eCW3 0.3 Hrine 2014 0.3 MG/0.3ML ([facility] MG/0.3ML 0.3 12:00: [place] MG/0.3 00 AM Health ML EDT Care) EPINEPHrine EPINEP 12/03/ active EPINEPH rine eCW3 0.3 Hrine 2014 0.3 MG/0.3ML ([facility] MG/0.3ML 0.3 12:00: [place] MG/0.3 00 AM Health ML EDT Care) EPINEPHrine EPINEP 12/03/ active EPINEPH rine eCW3 0.3 Hrine 2014 0.3 MG/0.3ML ([place] [facility] MG/0.3ML 0.3 12:00: [place] MG/0.3 00 AM Health ML EDT Care) EPINEPHrine EPINEP 12/03/ active EPINEPH rine eCW3 0.3 Hrine 2014 0.3 MG/0.3ML ([facility] MG/0.3ML 0.3 12:00: [place] MG/0.3 00 AM Health ML EDT Care) EPINEPHrine EPINEP 12/03/ active EPINEPH rine eCW3 0.3 Hrine 2014 0.3 MG/0.3ML ([facility] [facility] MG/0.3ML 0.3 12:00: [place] MG/0.3 00 AM Health ML EDT Care) EPINEPHrine EPINEP 12/03/ active EPINEPH rine eCW3 0.3 Hrine 2014 0.3 MG/0.3ML ([place] [facility] MG/0.3ML 0.3 12:00: [place] MG/0.3 00 AM Health ML EDT Care) EPINEPHrine EPINEP 12/03/ active EPINEPH rine eCW3 0.3 Hrine 2014 0.3 MG/0.3ML ([facility] [facility] MG/0.3ML 0.3 12:00: [place] MG/0.3 00 AM Health ML EDT Care) EPINEPHrine EPINEP 12/03/ active EPINEPH rine eCW3 0.3 Hrine 2014 0.3 MG/0.3ML ([facility] [facility] MG/0.3ML 0.3 12:00: [place] MG/0.3 00 AM Health ML EDT Care) EPINEPHrine EPINEP 12/03/ active EPINEPH rine eCW3 0.3 Hrine 2014 0.3 MG/0.3ML ([facility] MG/0.3ML 0.3 12:00: [facility] MG/0.3 00 AM Health ML EDT Care) Hydroxyzine Vistar 1.0 active Vistaril 50 eCW3 Pamoate 50 il 50 {caps mg ([facility] MG Oral mg ule_a [place] Capsule s_nee Health [Vistaril] ded} Care) Vistaril 50 mg Hydroxyzine Vistar 1.0 active Vistaril 50 eCW3 Pamoate 50 il 50 {caps mg ([facility] MG Oral mg ule_a [place] Capsule s_nee Health [Vistaril] ded} Care) Vistaril 50 mg Hydroxyzine Vistar 1.0 active Vistaril 50 eCW3 Pamoate 50 il 50 {caps MG ([facility] MG Oral MG ule_a [place] Capsule s_nee Health [Vistaril] ded} Care) Vistaril 50 MG Prazosin 1 [place] 1.0 active Prazosin H Cl eCW3 MG Oral in HCl {caps 1 MG ([facility] Capsule 1 MG ule_a [place] Prazosin t_bed Health HCl 1 MG time} Care) 24 HR Wellbu 1.0 active Wellbutrin eCW3 Bupropion twyla {tabl XL 150 MG ([facility] Hydrochlori XL 150 et_in [place] de 150 MG MG _the_ Health Extended morni Care) Release ng} Oral Tablet [Wellbutrin ] Wellbutrin XL 150 MG gabapentin Gabape 1.0 active Gabapentin eCW3 800 MG Oral ntin {caps 800 MG ([facility] Tablet 800 MG ule} [facility] Gabapentin Health 800 MG Care) Albuterol Albute 2.0 active Albuterol e CW3 Sulfate HFA rol {puff Sulfate HFA ([facility] 108 (90 Sulfat s_as_ 108 (90 [facility]) e HFA neede Base) Health MCG/ACT 108 d} MCG/ACT Care) (90 Base) MCG/AC T Hydroxyzine Vistar 1.0 active Vistaril 50 eCW3 Pamoate 50 il 50 {caps mg ([facility] MG Oral mg ule_a [place] Capsule s_Pending sale to [facility] [Vistaril] ded} Care) Vistaril 50 mg 24 HR Wellbu 1.0 active Wellbutrin eCW3 Bupropion twyla {tabl XL 300 MG ([facility] Hydrochlori XL 300 et_in [place] de 300 MG MG _the_ Health Extended mor Care) Release ng} Oral Tablet [Wellbutrin ] Wellbutrin XL 300 MG Clonazepam Clonaz 1.0 active Clonazepam 1 eCW3 1 MG Oral epam 1 {tabl MG ([facility] Tablet MG et} [facility] Care) Prazosin 1 [place] 1.0 active Prazosin H Cl eCW3 MG Oral in HCl {caps 1 MG ([facility] Capsule 1 MG ule_a [place] Prazosin t_bed Health HCl 1 MG time} Care) Clonazepam Clonaz 1.0 active Clonazepam 2 eCW3 2 MG Oral epam 2 {tabl MG ([facility] Tablet MG et} [facility] Care) Hydroxyzine Vistar 1.0 active Vistaril 50 eCW3 Pamoate 50 il 50 {caps mg ([facility] MG Oral mg ule_a [place] Capsule s_Pending sale to [facility] [Vistaril] ded} Care) Vistaril 50 mg quetiapine Seroqu 1.0 active Seroquel 5 0 eCW3 50 MG Oral el 50 {tabl MG ([facility] Tablet MG et_at [place] [Seroquel] _[facility] Seroquel 50 marco} Care) MG quetiapine Seroqu 1.0 active Seroquel 5 0 eCW3 50 MG Oral el 50 {tabl MG ([facility] Tablet MG et_at [place] [Seroquel] _[facility] Seroquel 50 marco} Care) MG Hydroxyzine Vistar 1.0 active Vistaril 50 eCW3 Pamoate 50 il 50 {caps mg ([facility] MG Oral mg ule_a [place] [facility] [Vistaril] ded} Care) Vistaril 50 mg Hydroxyzine Vistar 1.0 active Vistaril 50 eCW3 Pamoate 50 il 50 {caps mg ([facility] MG Oral mg ule_a [place] C[facility] s_Pending sale to [facility] [Vistaril] ded} Care) Vistaril 50 mg Prazosin 1 Prazos 1.0 active Prazosin H Cl eCW3 MG Oral in HCl {caps 1 MG ([facility] Capsule 1 MG ule[facility]a [place] Prazosin t[facility]ly [facility] HCl 1 MG time} Care) quetiapine Seroqu 1.0 active Seroquel 5 0 eCW3 50 MG Oral el 50 {tabl MG ([facility] Tablet MG et_at [facility] [Seroquel] _[facility] Seroquel 50 marco} Care) MG Prazosin 1 Prazos 1.0 active Prazosin H Cl eCW3 MG Oral in HCl {caps 1 MG ([facility] Capsule 1 MG ule_a [place] Prazosin tFormerly [facility] HCl 1 MG time} Care) Prazosin 1 Prazos 1.0 active Prazosin H Cl eCW3 MG Oral in HCl {caps 1 MG ([facility] Capsule 1 MG ule_a [place] Prazosin tFormerly [facility] HCl 1 MG time} Care) Hydroxyzine Vistar 1.0 active Vistaril 50 eCW3 Pamoate 50 il 50 {caps mg ([facility]} Care) Vistaril 50 mg Clonazepam Clonaz 1.0 active Clonazepam 2 eCW3 2 MG Oral epam 2 {tabl MG ([facility] Tablet MG et} [facility] Care) Clonazepam Clonaz 1.0 active Clonazepam 1 eCW3 1 MG Oral epam 1 {tabl MG ([facility] Tablet MG et} [facility]) Prazosin 1 Prazos 1.0 active Prazosin H Cl eCW3 MG Oral in HCl {caps 1 MG ([facility] Capsule 1 MG ule_a [place] Prazosin tFormerly [facility] HCl 1 MG time} Care) Clonazepam Clonaz 1.0 active Clonazepam 1 eCW3 1 MG Oral epam 1 {tabl MG ([facility] Tablet MG et} [facility]) Hydroxyzine Vistar 1.0 active Vistaril 50 eCW3 Pamoate 50 il 50 {caps mg ([facility] MG Oral mg ule_a [place] Capsule s_Pending sale to [facility] [Vistaril] ded} Care) Vistaril 50 mg Clonazepam Clonaz 1.0 active Clonazepam 2 eCW3 2 MG Oral epam 2 {tabl MG ([facility] Tablet MG et} [facility]) 24 HR Wellbu 1.0 active Wellbutrin eCW3 Bupropion twyla {tabl XL 150 MG ([facility] Hydrochlori XL 150 et_in [place] de 150 MG MG _the_ Health Extended morni Care) Release ng} Oral Tablet [Wellbutrin ] Wellbutrin XL 150 MG Hydroxyzine Vistar 1.0 active Vistaril 50 eCW3 Pamoate 50 il 50 {caps MG ([facility] MG Oral MG [facility] [Vistaril] ded} Care) Vistaril 50 MG Clonazepam Clonaz 1.0 active Clonazepam 2 eCW3 2 MG Oral epam 2 {tabl MG ([facility] Tablet MG et} [facility] Care) gabapentin Gabape 1.0 active Gabapentin eCW3 800 MG Oral ntin {caps 800 MG ([facility] Tablet 800 MG ule} [facility] 800 MG Care) Prazosin 1 Prazos 1.0 active Prazosin H Cl eCW3 MG Oral in HCl {caps 1 MG ([facility] Capsule 1 MG ule_a [facility] Prazosin t_[facility] HCl 1 MG time} Care) 24 HR Wellbu 1.0 active Wellbutrin eCW3 Bupropion twyla {tabl XL 150 MG ([facility] Hydrochlori XL 150 et_in [place] de 150 MG MG _the_ [facility] Extended morni Care) Release ng} Oral Tablet [Wellbutrin ] Wellbutrin XL 150 MG 24 HR Wellbu 1.0 active Wellbutrin eCW3 Bupropion twyla {tabl XL 150 MG ([facility] Hydrochlori XL 150 et_in [place] de 150 MG MG _the_ Health Extended morni Care) Release ng} Oral Tablet [Wellbutrin ] Wellbutrin XL 150 MG Clonazepam Clonaz 1.0 active Clonazepam 1 eCW3 1 MG Oral epam 1 {tabl MG ([facility] Tablet MG et} [facility]) 24 HR Wellbu 1.0 active Wellbutrin eCW3 Bupropion twyla {tabl XL 300 MG ([facility] Hydrochlori XL 300 et_in [place] de 300 MG MG _the_ [facility] Extended morni Care) Release ng} Oral Tablet [Wellbutrin ] Wellbutrin XL 300 MG Hydroxyzine Vistar 1.0 active Vistaril 50 eCW3 Pamoate 50 il 50 {caps mg ([facility] MG Oral mg [facility]le[facility] [Vistaril] ded} Care) Vistaril 50 mg Prazosin 1 Prazos 1.0 active Prazosin H Cl eCW3 MG Oral in HCl {caps 1 MG ([facility] Capsule 1 MG [facility]le[facility] [place] Prazosin t_bed [facility] HCl 1 MG time} Care) Prazosin 1 Prazos 1.0 active Prazosin H Cl eCW3 MG Oral in HCl {caps 1 MG ([facility] Capsule 1 MG ule_a [place] Prazosin t_bed Health HCl 1 MG time} Care) Albuterol Albute 2.0 active Albuterol e CW3 Sulfate HFA rol {puff Sulfate HFA ([facility] 108 (90 Sulfat s_as_ 108 (90 [facility]) e HFA neede Base) Health MCG/ACT 108 d} MCG/ACT Care) (90 Base) MCG/AC T quetiapine Seroqu 1.0 active Seroquel 5 0 eCW3 50 MG Oral el 50 {tabl MG ([facility] Tablet MG et[facility] marco} Care) MG 24 HR Wellbu 1.0 active Wellbutrin eCW3 Bupropion twyla {tabl XL 150 MG ([facility] Hydrochlori XL 150 et_in [place] de 150 MG MG _the_ Health Extended morni Care) Release ng} Oral Tablet [Wellbutrin ] Wellbutrin XL 150 MG 24 HR Wellbu 1.0 active Wellbutrin eCW3 Bupropion twyla {tabl XL 150 MG ([facility] Hydrochlori XL 150 et_in [place] de 150 MG MG _the_ [facility] Extended morni Care) Release ng} Oral Tablet [Wellbutrin ] Wellbutrin XL 150 MG Hydroxyzine Vistar 1.0 active Vistaril 50 eCW3 Pamoate 50 il 50 {caps mg ([facility] MG Oral mg ule_a [facility] [Vistaril] ded} Care) Vistaril 50 mg Prazosin 1 Prazos 1.0 active Prazosin H Cl eCW3 MG Oral in HCl {caps 1 MG ([facility] Capsule 1 MG ule_a [place] Prazosin t_bed Health HCl 1 MG time} Care) Prazosin 1 Prazos 1.0 active Prazosin H Cl eCW3 MG Oral in HCl {caps 1 MG ([facility] Capsule 1 MG ule_a [place] Prazosin t_bed Health HCl 1 MG time} Care) Clonazepam Clonaz 1.0 active Clonazepam 2 eCW3 2 MG Oral epam 2 {tabl MG ([facility] Tablet MG et} [facility]) Hydroxyzine Vistar 1.0 active Vistaril 50 eCW3 Pamoate 50 il 50 {caps mg ([facility] MG Oral mg ule_a [facility] Caps[facility] [Vistaril] ded} Care) Vistaril 50 mg Clonazepam Clonaz 1.0 active Clonazepam 1 eCW3 1 MG Oral epam 1 {tabl MG ([facility] Tablet MG et} [facility] Care) Clonazepam Clonaz 1.0 active Clonazepam 2 eCW3 2 MG Oral epam 2 {tabl MG ([facility] Tablet MG et} [facility]) Clonazepam Clonaz 1.0 active Clonazepam 2 eCW3 2 MG Oral epam 2 {tabl MG ([facility] Tablet MG et} [facility]) 24 HR Wellbu 1.0 active Wellbutrin eCW3 Bupropion twyla {tabl XL 150 MG ([facility] Hydrochlori XL 150 et_in [place] de 150 MG MG _the_ Health Extended morni Care) Release ng} Oral Tablet [Wellbutrin ] Wellbutrin XL 150 MG 24 HR Wellbu 1.0 active Wellbutrin eCW3 Bupropion twyla {tabl XL 150 MG ([facility] Hydrochlori XL 150 et_in [place] de 150 MG MG _the_ Health Extended morni Care) Release ng} Oral Tablet [Wellbutrin ] Wellbutrin XL 150 MG Clonazepam Clonaz 1.0 active Clonazepam 2 eCW3 2 MG Oral epam 2 {tabl MG ([facility] Tablet MG et} [facility] Care) quetiapine Seroqu 1.0 active Seroquel 5 0 eCW3 50 MG Oral el 50 {tabl MG ([facility] Tablet MG et[facility] S[facility]quel [facility] marco} Care) MG Hydroxyzine Vistar 1.0 active Vistaril 50 eCW3 Pamoate 50 il 50 {caps mg ([facility] MG Oral mg ule_a [place] Capsule s_Pending sale to [facility] [Vistaril] ded} Care) Vistaril 50 mg Clonazepam Clonaz 1.0 active Clonazepam 2 eCW3 2 MG Oral epam 2 {tabl MG ([facility] Tablet MG et} [facility] Care) Albuterol Albute 2.0 active Albuterol e CW3 Sulfate HFA rol {puff Sulfate HFA ([facility] 108 (90 Sulfat s_as_ 108 (90 [place] [facility]) e HFA neede Base) Health MCG/ACT 108 d} MCG/ACT Care) (90 Base) MCG/AC T quetiapine Seroqu 1.0 active Seroquel 5 0 eCW3 50 MG Oral el 50 {tabl MG ([facility] Tablet MG et_at [place] [Seroquel] _[facility] Seroquel 50 marco} Care) MG quetiapine Seroqu 1.0 active Seroquel 5 0 eCW3 50 MG Oral el 50 {tabl MG ([facility] Tablet MG et_at [place] [Seroquel] _[facility] Seroquel 50 marco} Care) MG Clonazepam Clonaz 1.0 active Clonazepam 2 eCW3 2 MG Oral epam 2 {tabl MG ([facility] Tablet MG et} [facility] Care) quetiapine Seroqu 1.0 active Seroquel 5 0 eCW3 50 MG Oral el 50 {tabl MG ([facility] Tablet MG et_at [place] [Seroquel] _[facility] Seroquel 50 marco} Care) MG Hydroxyzine Vistar 1.0 active Vistaril 50 eCW3 Pamoate 50 il 50 {caps MG ([facility] MG Oral MG ule_a [place] Capsule s_Pending sale to [facility] [Vistaril] ded} Care) Vistaril 50 MG quetiapine Seroqu 1.0 active Seroquel 5 0 eCW3 50 MG Oral el 50 {tabl MG ([facility] Tablet MG et_at [place] [Seroquel] _[facility] Seroquel 50 marco} Care) MG quetiapine Seroqu 1.0 active Seroquel 5 0 eCW3 50 MG Oral el 50 {tabl MG ([facility] Tablet MG et_at [place] [Seroquel] _[facility] Seroquel 50 marco} Care) MG Clonazepam Clonaz 1.0 active Clonazepam 2 eCW3 2 MG Oral epam 2 {tabl MG ([facility] Tablet MG et} [facility] Care) quetiapine Seroqu 1.0 active Seroquel 5 0 eCW3 50 MG Oral el 50 {tabl MG ([facility] Tablet MG et_at [place] [Seroquel] _[facility] Seroquel 50 marco} Care) MG Clonazepam Clonaz 1.0 active Clonazepam 2 eCW3 2 MG Oral epam 2 {tabl MG ([facility] Tablet MG et} [facility] Care) 24 HR Wellbu 1.0 active Wellbutrin eCW3 Bupropion twyla {tabl XL 150 MG ([facility] Hydrochlori XL 150 et_in [place] de 150 MG MG _the_ Health Extended morni Care) Release ng} Oral Tablet [Wellbutrin ] Wellbutrin XL 150 MG Albuterol Albute 2.0 active Albuterol e CW3 Sulfate HFA rol {puff Sulfate HFA ([facility] 108 (90 Sulfat s_as_ 108 (90 [facility]) e HFA neede Base) Health MCG/ACT 108 d} MCG/ACT Care) (90 Base) MCG/AC T 24 HR Wellbu 1.0 active Wellbutrin eCW3 Bupropion twyla {tabl XL 300 MG ([facility] Hydrochlori XL 300 et_in [place] de 300 MG MG _the_ Health Extended morni Care) Release ng} Oral Tablet [Wellbutrin ] Wellbutrin XL 300 MG 24 HR Wellbu 1.0 active Wellbutrin eCW3 Bupropion twyla {tabl XL 150 MG ([facility] Hydrochlori XL 150 et_in [place] de 150 MG MG _the_ Health Extended morni Care) Release ng} Oral Tablet [Wellbutrin ] Wellbutrin XL 150 MG Problems, Conditions, and Diagnoses Code Display Name Description Problem Effective Data Type Dates Source(s) S41.101D Open wound of right Open wound of right Problem 020 eCW3 ([facility] upper arm, upper arm, 12:00:00 AM [facility] subsequent encounter subsequent EDT Care ) encounter Z86.39 History of thyroid History of thyroid Problem 9 eCW3 ([facility] disease disease 12:00:00 AM [facility] EST Care) F41.1 Generalized anxiety Generalized anxiety Problem 019 eCW3 ([facility] disorder disorder 12:00:00 AM [facility] EDT Care) F41.1 Generalized anxiety Generalized anxiety Problem 019 eCW3 ([facility] disorder disorder 12:00:00 AM [facility] EDT Care) F17.200 Tobacco dependence Tobacco dependence Problem 9 eCW3 ([facility] 12:00:00 AM [facility] EDT Care) F10.20 Alcohol use Alcohol use Problem 11/08/2018 eCW3 ([facility] disorder, moderate, disorder, moderate, 12:00:0 0 AM [facility] dependence dependence EDT Care) F17.200 Tobacco dependence Tobacco dependence Problem 9 eCW3 ([facility] 12:00:00 AM [facility] EDT Care) F31.60 Bipolar affective Bipolar affective Problem 10/02/2016 eCW3 ([facility] disorder, current disorder, current 12:00:00 AM [facility] episode mixed, episode mixed, EDT Care) current episode current episode severity unspecified severity unspecified F31.60 Bipolar affective Bipolar affective Problem 10/02/2016 eCW3 ([facility] disorder, current disorder, current 12:00:00 AM [facility] episode mixed, episode mixed, EDT Care) current episode current episode severity unspecified severity unspecified F41.1 KENNETH (generalized KENNETH (generalized Problem 06/08/2016 eC W3 ([facility] anxiety disorder) anxiety disorder) 12:00:00 AM [facility] EDT Care) F41.1 KENNETH (generalized KENNETH (generalized Problem 06/08/2016 eC W3 ([facility] anxiety disorder) anxiety disorder) 12:00:00 AM [facility] EDT Care) F31.81 Bipolar II disorder Bipolar II disorder Problem 016 eCW3 ([facility] 12:00:00 AM [facility] EDT Care) F63.9 Impulse control Impulse control Problem 12/13/2015 eCW3 ([facility] disorder disorder 12:00:00 AM [facility] EDT Care) F63.9 Impulse control Impulse control Problem 12/13/2015 eCW3 ([facility] disorder disorder 12:00:00 AM [facility] EDT Care) F63.9 Impulse disorder, Impulse disorder, Problem 07/18/2015 eCW3 ([facility] unspecified unspecified 12:00:00 [facility]) Z60.9 Problem related to Problem related to Problem 6 eCW3 ([facility] social environment social environment 12:00:00 AM [facility] EDT Care) Z59.8 Financial problems Financial problems Problem 6 eCW3 ([facility] 12:00:00 AM [facility] EDT Care) Z60.9 Problem related to Problem related to Problem 6 eCW3 ([facility] social environment social environment 12:00:00 AM [facility] EDT Care) Z59.8 Financial problems Financial problems Problem 6 eCW3 ([facility] 12:00:00 AM [facility] EDT Care) F63.9 Impulse disorder, Impulse disorder, Problem 07/18/2015 eCW3 ([facility] unspecified unspecified 12:00:00 AM [facility] EDT Care) E05.90 Thyrotoxicosis, Thyrotoxicosis, Problem 03/02/2015 eCW3 ([facility] unspecified without unspecified without 12:00:0 0 AM [facility] thyrotoxic crisis or thyrotoxic crisis EST Care) storm or storm K29.70 Gastritis Gastritis Problem 03/02/2015 eCW3 ([facility] 12:00:00 AM [facility] EST Care) F17.210 Cigarette nicotine Cigarette nicotine Problem 6 eCW3 ([facility] dependence without dependence without 12:00:00 AM [facility] complication complication EST Care) N52.9 Erectile Erectile Problem 03/02/2015 eCW3 ([facility] dysfunction, dysfunction, 12:00:00 AM [facility] unspecified erectile unspecified EST Car e) dysfunction type erectile dysfunction type F17.210 Cigarette nicotine Cigarette nicotine Problem 6 eCW3 ([facility] dependence without dependence without 12:00:00 AM [facility] complication complication EST Care) N52.9 Erectile Erectile Problem 03/02/2015 eCW3 ([facility] dysfunction, dysfunction, 12:00:00 AM [facility] unspecified erectile unspecified EST Car e) dysfunction type erectile dysfunction type K29.70 Gastritis Gastritis Problem 03/02/2015 eCW3 ([facility] 12:00:00 AM [facility] EST Care) E05.90 Thyrotoxicosis, Thyrotoxicosis, Problem 03/02/2015 eCW3 ([facility] unspecified without unspecified without 12:00:0 0 AM [facility] thyrotoxic crisis or thyrotoxic crisis EST Care) storm or storm J30.2 Other seasonal Other seasonal Problem 11/30/2014 eCW3 ( [facility] allergic rhinitis allergic rhinitis 12:00:00 AM [facility] EDT Care) F31.9 Bipolar 1 disorder Bipolar 1 disorder Problem 5 eCW3 ([facility] 12:00:00 AM [facility] EDT Care) J45.20 Mild intermittent Mild intermittent Problem 11/30/2014 eCW3 ([facility] asthma without asthma without 12:00:00 AM [facility] complication complication EDT Care) E05.90 Hyperthyroidism Hyperthyroidism Problem 11/30/2014 eCW3 ([facility] 12:00:00 AM [facility] EDT Care) J30.2 Other seasonal Other seasonal Problem 11/30/2014 eCW3 ( [facility] allergic rhinitis allergic rhinitis 12:00:00 AM [facility] EDT Care) F31.9 Bipolar 1 disorder Bipolar 1 disorder Problem 5 eCW3 ([facility] 12:00:00 AM [facility] EDT Care) J45.20 Mild intermittent Mild intermittent Problem 11/30/2014 eCW3 ([facility] asthma without asthma without 12:00:00 AM [facility] complication complication EDT Care) E05.90 Hyperthyroidism Hyperthyroidism Problem 11/30/2014 eCW3 ([facility] 12:00:00 AM [facility] EDT Care) Results ID Date Data Source [id number] 10/30/2019 03:15:00 PM EDT [facility] Name Value Range Interpretation Code Description Data Kayy rce(s) Supporting Document(s ) SARS-COV-2 [facility] RESP Diagnostics QL LEANDRA+PROBE This lab was ordered by [facility] and reported by [facility]. ID Date Data Source [id number] 10/06/2019 12:34:00 PM EDT [facility] Name Value Range Interpretation Description Data Sup porting Code Source(s) Document(s ) 2019 Novel [facility] Coronavirus RNA Interpretation Unspecified Specimen Qualitative LEANDRA Probe Detection This lab was ordered by [facility] - [id number] and reported by [facility]. Procedure Social History Code Duration Value Status Description Data Source(s ) Smoking 11/03/2019 Current Smoker completed Current Smoker eCW3 ( [place] 12:00:00 AM EDT Health Ca re) Smoking 06/03/2019 Current Smoker completed Current Smoker eCW3 ( [facility] [facility] 12:00:00 AM EDT Health Ca re) Smoking 06/03/2019 Current Smoker completed Current Smoker eCW3 ( [facility] 12:00:00 AM EDT Health Ca re) Smoking 06/03/2019 Current Smoker completed Current Smoker eCW3 ( [facility] [facility] 12:00:00 AM EDT Health Ca re) Smoking 06/03/2019 Current Smoker completed Current Smoker eCW3 ( [facility] 12:00:00 AM EDT Health Ca re) Smoking 06/03/2019 Current Smoker completed Current Smoker eCW3 ( [facility] [facility] 12:00:00 AM EDT Health Ca re) Smoking 06/03/2019 Current Smoker completed Current Smoker eCW3 ( [facility] [facility] 12:00:00 AM EDT Health Ca re) Smoking 06/03/2019 Current Smoker completed Current Smoker eCW3 ( [facility] 12:00:00 AM EDT Health Ca re) Smoking 06/03/2019 Current Smoker completed Current Smoker eCW3 ( [facility] 12:00:00 AM EDT Health Ca re) Smoking 06/03/2019 Current Smoker completed Current Smoker eCW3 ( [facility] 12:00:00 AM EDT Health Ca re) Smoking 06/03/2019 Current Smoker completed Current Smoker eCW3 ( [facility] 12:00:00 AM EDT Health Ca re) Smoking 11/19/2018 Current Smoker completed Current Smoker eCW3 ( [facility] 12:00:00 AM EDT Health Ca re) Smoking 11/19/2018 Current Smoker completed Current Smoker eCW3 ( [facility] [facility] 12:00:00 AM EDT Health Ca re) Current Smoker completed Current Smoker eCW3 ( [facility]) Current Smoker completed Current Smoker eCW3 ( [facility]) Current Smoker completed Current Smoker eCW3 ( [facility]) Current Smoker completed Current Smoker eCW3 ( [facility]) Current Smoker completed Current Smoker eCW3 ( [facility]) Current Smoker completed Current Smoker eCW3 ( [facility]) Current Smoker completed Current Smoker eCW3 ( [facility]) Current Smoker completed Current Smoker eCW3 ( [facility]) Current Smoker completed Current Smoker eCW3 ( [facility]) Current Smoker completed Current Smoker eCW3 ( [facility]) Current Smoker completed Current Smoker eCW3 ( [facility]) Current Smoker completed Current Smoker eCW3 ( [facility]) Current Smoker completed Current Smoker eCW3 ( [facility]) Vital Signs ID Date Data Source UNK Name Value Range Interpretation Code Description Data Source(s) Diastolic blood 83 mm[Hg] 83 mm[Hg] eCW3 ([facility]) Systolic blood 131 mm[Hg] 131 mm[Hg] eCW3 ([facility]) Body temperature 99.0 [degF] 99.0 [degF] eCW3 ( [facility]) Heart rate 18 /min 18 /min eCW3 ([facility]) Body mass index 22.38 kg/m2 22.38 kg/m2 eCW3 ([facility] (BMI) [Ratio] [facility]) Body weight 156 [lb_av] 156 [lb_av] eCW3 ([facility]) Body height [in_i] eCW3 ([facility]) Diastolic blood 80 mm[Hg] 80 mm[Hg] eCW3 ([facility]) Systolic blood 120 mm[Hg] 120 mm[Hg] eCW3 ([facility]) Body temperature 98.8 [degF] 98.8 [degF] eCW3 ( [facility]) Heart rate 18 /min 18 /min eCW3 ([facility]) Body mass index 22.38 kg/m2 22.38 kg/m2 eCW3 ([facility] (BMI) [Ratio] [facility]) Body weight 156 [lb_av] 156 [lb_av] eCW3 ([facility]) Body height [in_i] eCW3 ([facility]) Diastolic blood 89 mm[Hg] 89 mm[Hg] eCW3 ([facility]) Systolic blood 131 mm[Hg] 131 mm[Hg] eCW3 ([facility]) Body temperature 97.8 [degF] 97.8 [degF] eCW3 ( [facility]) Heart rate 18 /min 18 /min eCW3 ([facility]) Body weight 160 [lb_av] 160 [lb_av] eCW3 ([facility]) Diastolic blood 93 mm[Hg] 93 mm[Hg] eCW3 ([facility]) Systolic blood 139 mm[Hg] 139 mm[Hg] eCW3 ([facility]) Body temperature 97.9 [degF] 97.9 [degF] eCW3 ( [facility]) Heart rate 18 /min 18 /min eCW3 ([facility]) Body mass index 22.67 kg/m2 22.67 kg/m2 eCW3 ([facility] (BMI) [Ratio] [facility]) Body weight 158 [lb_av] 158 [lb_av] eCW3 ([facility]) Body height [in_i] eCW3 ([facility]) Diastolic blood 86 mm[Hg] 86 mm[Hg] eCW3 ([facility]) Systolic blood 131 mm[Hg] 131 mm[Hg] eCW3 ([facility]) Heart rate 16 /min 16 /min eCW3 ([facility]) Body height [in_i] eCW3 ([facility]) Patient Treatment Plan of Care Planned Activity Planned Date Details Description Data Source (s) Gauze Bandages - 06/03/2019 12:00:00 eCW3 ([facility]) Gauze Bandage 3" - 06/03/2019 12:00:00 eC W3 ([facility]) Gauze Bandages - 06/03/2019 12:00:00 eCW3 ([facility]) Gauze Bandage 3" - 06/03/2019 12:00:00 eC W3 ([facility]) Gauze Bandages - 06/03/2019 12:00:00 eCW3 ([facility]) Gauze Bandage 3" - 06/03/2019 12:00:00 eC W3 ([facility]) Gauze Bandages - 06/03/2019 12:00:00 eCW3 ([facility]) Gauze Bandage 3" - 06/03/2019 12:00:00 eC W3 ([facility]) Gauze Bandages - 06/03/2019 12:00:00 eCW3 ([facility]) Gauze Bandage 3" - 06/03/2019 12:00:00 eC W3 ([facility]) Gauze Bandages - 06/03/2019 12:00:00 eCW3 ([facility]) Gauze Bandage 3" - 06/03/2019 12:00:00 eC W3 ([facility]) Gauze Bandages - 06/03/2019 12:00:00 eCW3 ([facility]) Gauze Bandage 3" - 06/03/2019 12:00:00 eC W3 ([facility]) Gauze Bandages - 06/03/2019 12:00:00 eCW3 ([facility]) Gauze Bandage 3" - 06/03/2019 12:00:00 eC W3 ([facility]) Gauze Bandages - 06/03/2019 12:00:00 eCW3 ([facility]) Gauze Bandage 3" - 06/03/2019 12:00:00 eC W3 ([facility]) Gauze Bandages - 06/03/2019 12:00:00 eCW3 ([facility]) Naproxen 250 MG Oral 06/03/2019 12:00:00 eCW3 ([facility]) Gauze Bandage 3" - 06/03/2019 12:00:00 eC W3 ([facility]) bacitracin zinc 0.5 06/03/2019 12:00:00 e CW3 ([facility] UNT/MG Topical Ointment AM EDT Heal th Care) Naltrexone 112 MG/ML 11/08/2018 12:00:00 eCW3 ([facility] Injectable Suspension AM EDT Health Care) [Vivitrol] Nicotine 4 MG/ACTUAT 11/08/2018 12:00:00 eCW3 ([place] Inhalant Solution AM EDT Health Car e) [Nicotrol] Naltrexone 112 MG/ML 11/08/2018 12:00:00 eCW3 ([facility] [facility] Injectable Suspension AM EDT Health Care) [Vivitrol] Nicotine 4 MG/ACTUAT 11/08/2018 12:00:00 eCW3 ([facility] [facility] Inhalant Solution AM EDT Health Car e) [Nicotrol] Naltrexone 112 MG/ML 11/08/2018 12:00:00 eCW3 ([facility] [facility] Injectable Suspension AM EDT Health Care) [Vivitrol] Nicotine 4 MG/ACTUAT 11/08/2018 12:00:00 eCW3 ([place] [facility] Inhalant Solution AM EDT Health Car e) [Nicotrol] Naltrexone 112 MG/ML 11/08/2018 12:00:00 eCW3 ([facility] Injectable Suspension AM EDT Health Care) [Vivitrol] Nicotine 4 MG/ACTUAT 11/08/2018 12:00:00 eCW3 ([place] [facility] Inhalant Solution AM EDT Health Car e) [Nicotrol] Naltrexone 112 MG/ML 11/08/2018 12:00:00 eCW3 ([facility] [facility] Injectable Suspension AM EDT Health Care) [Vivitrol] Nicotine 4 MG/ACTUAT 11/08/2018 12:00:00 eCW3 ([place] [facility] Inhalant Solution AM EDT Health Car e) [Nicotrol] Naltrexone 112 MG/ML 11/08/2018 12:00:00 eCW3 ([place] [facility] Injectable Suspension AM EDT Health Care) [Vivitrol] Nicotine 4 MG/ACTUAT 11/08/2018 12:00:00 eCW3 ([place] [facility] Inhalant Solution AM EDT Health Car e) [Nicotrol] Naltrexone 112 MG/ML 11/08/2018 12:00:00 eCW3 ([place] [facility] Injectable Suspension AM EDT Health Care) [Vivitrol] Nicotine 4 MG/ACTUAT 11/08/2018 12:00:00 eCW3 ([facility] Inhalant Solution AM EDT [facility]) [Nicotrol] Naltrexone 112 MG/ML 11/08/2018 12:00:00 eCW3 ([facility] Injectable Suspension AM EDT [facility]) [Vivitrol] Nicotine 4 MG/ACTUAT 11/08/2018 12:00:00 eCW3 ([facility] In[facility] AM EDT [facility]) [Nicotrol] Naltrexone 112 MG/ML 11/08/2018 12:00:00 eCW3 ([facility] Injectable Suspension AM EDT [facility]) [Vivitrol] Nicotine 4 MG/ACTUAT 11/08/2018 12:00:00 eCW3 ([facility] Inhalant [facility] AM EDT [facility]) [Nicotrol] Nicotine 4 MG/ACTUAT 11/08/2018 12:00:00 eCW3 ([facility] Inhalant [facility] AM EDT [facility]) [Nicotrol] Naltrexone 112 MG/ML 11/08/2018 12:00:00 eCW3 ([facility] [Vivitrol] EPINEPHrine 0.3 MG/0.3ML 12/03/2014 12:00:00 [facility]CW3 [facility] EPINEPHrine 0.3 MG/0.3ML 12/03/2014 12:00:00 eCW3 ([facility]) EPINEPHrine 0.3 MG/0.3ML 12/03/2014 12:00:00 eCW3 ([facility]) EPINEPHrine 0.3 MG/0.3ML 12/03/2014 12:00:00 eCW3 [facility] EPINEPHrine 0.3 MG/0.3ML 12/03/2014 12:00:00 eCW3 ([facility] EDT [facility]) EPINEPHrine 0.3 MG/0.3ML 12/03/2014 12:00:00 eCW3 [facility] EPINEPHrine 0.3 MG/0.3ML 12/03/2014 12:00:00 [facility]CW[facility] EPINEPHrine 0.3 MG/0.3ML 12/03/2014 12:00:00 [facility]CW3 [facility] EPINE[facility] 0.3 MG/0.3ML 12/03/2014 12:00:00 eCW3 ([facility]) EPINEPHrine 0.3 MG/0.3ML 12/03/2014 12:00:00 eCW3 ([facility]) Clonazepam 1 MG Oral eCW3 ([facility]) 24 HR Bupropion eCW3 ([facility] Hydrochloride 300 MG [facility] Care) Extended Release Oral Tablet [Wellbutrin] Hydroxyzine Pamoate 50 MG eC W3 ([facility] Oral Capsule [Vistaril] [facility]al Care) Prazosin 1 MG Oral eCW3 ([facility]) Clonazepam 2 MG Oral eCW3 ([facility]) 24 HR Bupropion eCW3 ([facility] Hydrochloride 150 MG [facility]) Extended Release Oral Tablet [Wellbutrin] Hydroxyzine Pamoate 50 MG eC W3 ([facility] Oral Capsule [Vistaril] [facility]) quetiapine 50 MG Oral eCW3 ( [facility] Tablet [Seroquel] [facility]) Prazosin 1 MG Oral eCW3 ([facility]) Clonazepam 2 MG Oral eCW3 ([facility]) 24 HR Bupropion eCW3 ([facility] Hydrochloride 150 MG [facility]) Extended Release Oral Tablet [Wellbutrin] Hydroxyzine Pamoate 50 MG eC W3 ([facility] Oral Capsule [Vistaril] [facility]) quetiapine 50 MG Oral eCW3 ( [facility] Tablet [Seroquel] [facility]) Prazosin 1 MG Oral eCW3 ([facility]) Clonazepam 2 MG Oral eCW3 ([facility]) 24 HR Bupropion eCW3 ([facility] Hydrochloride 150 MG [facility]) Extended Release Oral Tablet [Wellbutrin] Hydroxyzine Pamoate 50 MG eC W3 ([facility] Oral Capsule [Vistaril] [facility]) quetiapine 50 MG Oral eCW3 ( [facility] Tablet [Seroquel] [facility]) Prazosin 1 MG Oral eCW3 ([facility]) Clonazepam 2 MG Oral eCW3 ([facility]) 24 HR Bupropion eCW3 ([facility] Hydrochloride 150 MG [facility]) Extended Release Oral Tablet [Wellbutrin] Hydroxyzine Pamoate 50 MG eC W3 ([facility] Oral Capsule [Vistaril] [facility]) quetiapine 50 MG Oral eCW3 ( [facility] Tablet [Seroquel] [facility]) Prazosin 1 MG Oral eCW3 ([facility]) Clonazepam 2 MG Oral eCW3 ([facility]) 24 HR Bupropion eCW3 ([facility] Hydrochloride 150 MG [facility]) Extended Release Oral Tablet [Wellbutrin] Hydroxyzine Pamoate 50 MG eC W3 ([facility] Oral Capsule [Vistaril] [facility]) quetiapine 50 MG Oral eCW3 ( [facility] Tablet [Seroquel] [facility]) Prazosin 1 MG Oral eCW3 ([facility]) Clonazepam 2 MG Oral eCW3 ([facility]) 24 HR Bupropion eCW3 ([facility] Hydrochloride 150 MG [facility]) Extended Release Oral Tablet [Wellbutrin] Hydroxyzine Pamoate 50 MG eC W3 ([facility] Oral Capsule [Vistaril] [facility]) quetiapine 50 MG Oral eCW3 ( [facility] Tablet [Seroquel] [facility]) Prazosin 1 MG Oral eCW3 ([facility]) Clonazepam 2 MG Oral eCW3 ([facility]) 24 HR Bupropion eCW3 ([facility] Hydrochloride 150 MG [facility]) Extended Release Oral Tablet [Wellbutrin] Hydroxyzine Pamoate 50 MG eC W3 ([facility] Oral Capsule [Vistaril] [facility]) quetiapine 50 MG Oral eCW3 ( [facility] Tablet [Seroquel] [facility]) Prazosin 1 MG Oral eCW3 ([facility]) Clonazepam 2 MG Oral eCW3 ([facility]) 24 HR Bupropion eCW3 ([facility] Hydrochloride 150 MG [facility]) Extended Release Oral Tablet [Wellbutrin] Hydroxyzine Pamoate 50 MG eC W3 ([facility] Oral Capsule [Vistaril] [facility]) quetiapine 50 MG Oral eCW3 ( [facility] Tablet [Seroquel] [facility]) Prazosin 1 MG Oral eCW3 ([facility]) Clonazepam 2 MG Oral eCW3 ([facility]) 24 HR Bupropion eCW3 ([facility] Hydrochloride 150 MG [facility]) Extended Release Oral Tablet [Wellbutrin] Hydroxyzine Pamoate 50 MG eC W3 ([facility] Oral Capsule [Vistaril] [facility]) quetiapine 50 MG Oral eCW3 ( [facility] Tablet [Seroquel] [facility]) Clonazepam 2 MG Oral eCW3 ([facility]) Hydroxyzine Pamoate 50 MG eC W3 ([facility] Oral Capsule [Vistaril] [facility]) quetiapine 50 MG Oral eCW3 ( [facility] Tablet [Seroquel] [facility]) 24 HR Bupropion eCW3 ([facility] Hydrochloride 150 MG [facility] Care) Extended Release Oral Tablet [Wellbutrin] Prazosin 1 MG Oral eCW3 ([facility]) Clonazepam 2 MG Oral eCW3 ([facility]) Hydroxyzine Pamoate 50 MG eC W3 ([facility] Oral Capsule [Vistaril] Heal [facility]) 24 HR Bupropion eCW3 ([facility] Hydrochloride 300 MG Health Care) Extended Release Oral Tablet [Wellbutrin]
[2019-11-30 20:15] VITALS: BMI 22.5
--- NOTE | 2019-11-30 20:58 | HP ---
CIWA Score - Admission Criteria [facility]ASAS Guidelines: Admission for Medically Managed Detox: Requires at least one of the followin. CIWA greater than 12 2. Seizures within the past 24 hours 3. Delirium tremens within the past 24 hours 4. Hallucinations within the past 24 hours 5. Acute intervention needed for co occurring medical disorder 6. Acute intervention needed for co occurring psychiatric disorder 7. Severe withdrawal that cannot be handled at a lower level of care (continued vomiting, continued diarrhea, abnormal vital signs) requiring intravenous medication and/or fluids 8. Admitting History and Physical - Smoking History Smoking history: Current every day smoker Have you smoked in the past 12 months: Yes Aproximately how many cigarettes per day: 3 - Alcohol/Substance Use Hx Alcohol Use: Yes (reports drinking since 11 yo,beer 2-3 6 packs daily) Admission [facility] Chief Complaint: Seeking admission to Rehab. Allergies/Adverse Reactions: Allergies Allergy/AdvReac Type Severity Reaction Status Date / Time lactose Allergy Verified 11/30/19 21:21 FRUIT Allergy Uncoded 11/30/19 21:21 History of Present Illness: 34 years old male with a long history of alcohol and cocaine dependence is seeking admission to Rehab. His last admission to [facility]. was for the period 09/27/2017 - 10/01/2017. He has medical history of hyperthyroidism, psych. history of anxiety, bipolar disorder, depression, PTSD and he denies suicide attempt / suicidal ideation at this time. Exam Limitations: No Limitations - Ebola screening Have you traveled outside of the country in the last 21 days: No Have you had contact with anyone from an Ebola affected area: No Have you been sick,other than usual withdrawal symptoms: No Do you have a fever: No - Review of Systems Constitutional: No Symptoms Reported EENT: reports: No Symptoms Reported Respiratory: reports: No Symptoms reported Cardiac: reports: No Symptoms Reported GI: reports: No Symptoms Reported : reports: No Symptoms Reported Musculoskeletal: reports: No Symptoms Reported Integumentary: reports: No Symptoms Reported Neuro: reports: No Symptoms reported Endocrine: reports: No Symptoms Reported Hematology: reports: No Symptoms Reported Psychiatric: reports: Mood/Affect Appropiate, Orientated x3 Other Systems: Reviewed and Negative Patient History - Patient Medical History Hx Anemia: No Hx Asthma: No Hx Chronic Obstructive Pulmonary Disease (COPD): No Hx Cancer: No Hx Cardiac Disorders: No Hx Congestive Heart Failure: No Hx Hypertension: No Hx Hypercholesterolemia: No HX Cerebrovascular Accident: No Hx Seizures: No Hx Diabetes: No Hx Gastrointestinal Disorders: No Hx Liver Disease: No Hx Genitourinary Disorders: No Hx Sexually Transmitted Disorders: No Hx Renal Disease (ESRD): No Hx Thyroid Disease: Yes (Hyperthroidism - Not on medication) Hx Human Immunodeficiency Virus (HIV): No (Negative 2020) Hx Hepatitis C: No Hx Depression: Yes (Not on medication) Hx Suicide Attempt: No (Denies suicide attempt and suicidal ideation at this time) Hx Bipolar Disorder: Yes (Not on medication) Hx Schizophrenia: No - Patient Surgical History Past Surgical History: Yes Hx Neurologic Surgery: No Hx Cataract Extraction: No Hx Cardiac Surgery: No Hx Lung Surgery: No Hx Abdominal Surgery: No Hx Appendectomy: No Hx Cholecystectomy: No Hx Genitourinary Surgery: No Hx Section: No Hx Orthopedic Surgery: Yes (LEFT HAND SURGERY JULY 2017) Anesthesia Reaction: No - PPD History Previous Implant?: Yes Documented Results: Negative w/proof Implanted On Prior [facility] Admission?: Yes Date: 09/29/17 PPD to be Administered?: Yes - Reproductive History Patient is a Female of Child Bearing Age (11 -55 yrs old): No (Male) - Smoking Cessation Smoking history: Current every day smoker Have you smoked in the past 12 months: Yes Aproximately how many cigarettes per day: 3 Hx Chewing Tobacco Use: No Initiated information on smoking cessation: Yes 'Breaking Loose' booklet given: 11/30/19 - Substance & Tx. History Hx Alcohol Use: Yes Hx Substance Use: Yes Substance Use Type: Alcohol, Cocaine Hx Substance Use Treatment: Yes ([facility]) - Substances abused Alcohol Substance route: Oral Frequency: 1-2 times per week Amount used: 2-3 beers- 3 times a week Age of first use: 12 Date of last use: 11/29/19 Admission Physical Exam [facility] - Vital Signs Vital Signs: Vital Signs - 24 hr 11/30/19 20:13 Temperature 96.4 F L Pulse Rate 72 Respiratory 16 Rate Blood Pressure 129/88 - Physical General Appearance: Yes: Within Normal Limits HEENTM: Yes: Within Normal Limits Respiratory: Yes: Lungs Clear, Normal Breath Sounds, No Respiratory Distress Neck: Yes: Within Normal Limits Breast: Yes: Breast Exam Deferred Cardiology: Yes: Within Normal Limits Abdominal: Yes: Normal Bowel Sounds Genitourinary: Yes: Within Normal Limits Back: Yes: Normal Inspection Musculoskeletal: Yes: Within Normal Limits Extremities: Yes: Within Normal Limits Neurological: Yes: Within Normal Limits - Diagnostic (1) Anxiety Current Visit: Yes Status: Chronic (2) Bipolar disorder Current Visit: Yes Status: Chronic Qualifiers: Active/Remission status: remission status unspecified Qualified Code(s): F31.9 - Bipolar disorder, unspecified (3) Cocaine dependence Current Visit: Yes Status: Chronic Qualifiers: Substance use status: uncomplicated Qualified Code(s): F14.20 - Cocaine dependence, uncomplicated (4) Depression Current Visit: Yes Status: Chronic Qualifiers: Depression Type: unspecified Qualified Code(s): F32.9 - Major depressive disorder, single episode, unspecified (5) Hyperthyroidism Current Visit: Yes Status: Chronic (6) Uncomplicated alcohol dependence Current Visit: Yes Status: Chronic (7) PTSD (post-traumatic stress disorder) Current Visit: Yes Status: Chronic Cleared for Admission S - Detox or Rehab [facility] Level of Care: Observation Bed Claeared for Rehab Admission: Yes Breathalyzer - Breathalyzer Breathalyzer: 0 Urine Drug Screen - Test Device Lot number: [id number] Expiration date: 09/28/21 - Control Is test valid?: Yes - Results Drug screen NEGATIVE: No Urine drug screen results: LENCHO-Cocaine Inpatient Rehab Admission - Rehab Decision to Admit Inpatient rehab admission?: Yes - Initial Determination Are CD services needed?: No Free of communicable disease: Yes Not in need of hospitalization: Yes - Rehab Admission Criteria Previous failed treatment: Yes Poor recovery environment: Yes Comorbidities: Yes Lacks judgement: No Patient is meeting Inpatient Rehab admission criteria:: Yes
[2019-11-30] MEDS ORDERED: NICOTINE POLACRILEX 2 MG GUM BC PRN (21:10)
[2019-11-30] MEDS ORDERED: MAGNESIUM HYDROX 2400MG/30ML ORAL SUSPENSION 30 ML CUP PO PRN (21:10)
[2019-11-30] MEDS ORDERED: MAG HYDROX/AL HYDROX/SIMETH 30 ML UNIT-DOSE CUP PO PRN (21:10)
[2019-11-30] MEDS ORDERED: IBUPROFEN 400 MG TABLET (FP) PO PRN (21:10)
[2019-11-30] MEDS ORDERED: guaiFENesin 200 MG/10 ML 10 ML UNIT-DOSE CUPS PO PRN (21:10)
[2019-11-30] MEDS ORDERED: MAGNESIUM CITRATE 300 ML BOTTLE PO PRN (21:10)
[2019-11-30] MEDS ORDERED: ACETAMINOPHEN 325 MG TABLET (FP) PO PRN (21:10)
[2019-11-30] MEDS ORDERED: P-EPHED 60MG/TRIPROLIDI 2.5MG TABLET PO PRN (21:10)
[2019-11-30] MEDS ORDERED: LOPERAMIDE HCL 2 MG CAPSULE PO PRN (21:10)
--- OUTSIDE RECORDS SUMMARY | 2019-11-30 21:22 | XMS ---
:1985 Author Organization [facility] Support Name Relationship Address Phone UE Unavailable Unavailable Unavailable DIVINA HERNANDEZ SISTER [address] [place] [address] claudine hernandez Unavailable [address] [place] [address] Re-disclosure Warning The records that you are [...] is protected by Article 27-F of the [facility] Public Health law. If you continue you may haveaccess to information: Regarding HIV / AIDS; Provided by facilities licensed or operated by the [facility] Office of Mental Health; or Provided by the [facility] Office for People With Developmental Disabilities. If such information is present, then the following [facility] mandated warning applies: This information has been [...] law may result in a fine or alf sentence or both. A general authorization for the release of medical or other information is NOT sufficient authorization for further disclosure. Allergies and Adverse Reactions Type Description Substance Reaction Status Data Source(s ) Drug allergy walnuts/almonds Drug allergy anaphylaxis Active eCW3 ([facility]) Drug allergy strawberries Drug allergy anaphylaxis Active eCW3 ([facility]) Drug allergy apples Drug allergy anaphylaxis Active eCW3 ([facility]) Drug allergy walnuts/almonds Drug allergy anaphylaxis Active eCW3 ([facility]) Drug allergy strawberries Drug allergy anaphylaxis Active eCW3 ([facility]) Drug allergy apples Drug allergy anaphylaxis Active eCW3 ([facility]) Drug allergy walnuts/almonds Drug allergy anaphylaxis Active eCW3 ([facility]) Drug allergy strawberries Drug allergy anaphylaxis Active eCW3 ([facility]) Drug allergy apples Drug allergy anaphylaxis Active eCW3 ([facility]) Drug allergy walnuts/almonds Drug allergy anaphylaxis Active eCW3 ([facility]) Drug allergy strawberries Drug allergy anaphylaxis Active eCW3 ([facility]) Drug allergy apples Drug allergy anaphylaxis Active eCW3 ([facility]) Drug allergy walnuts/almonds Drug allergy anaphylaxis Active eCW3 ([facility]) Drug allergy strawberries Drug allergy anaphylaxis Active eCW3 ([facility]) Drug allergy apples Drug allergy anaphylaxis Active eCW3 ([facility]) Drug allergy walnuts/almonds Drug allergy anaphylaxis Active eCW3 ([facility]) Drug allergy strawberries Drug allergy anaphylaxis Active eCW3 ([facility]) Drug allergy apples Drug allergy anaphylaxis Active eCW3 ([facility]) Drug allergy walnuts/almonds Drug allergy anaphylaxis Active eCW3 ([facility]) Drug allergy strawberries Drug allergy anaphylaxis Active eCW3 ([facility]) Drug allergy apples Drug allergy anaphylaxis Active eCW3 ([facility]) Drug allergy walnuts/almonds Drug allergy anaphylaxis Active eCW3 ([facility]) Drug allergy strawberries Drug allergy anaphylaxis Active eCW3 ([facility]) Drug allergy apples Drug allergy anaphylaxis Active eCW3 ([facility]) Drug allergy walnuts/almonds Drug allergy anaphylaxis Active eCW3 ([facility]) Drug allergy strawberries Drug allergy anaphylaxis Active eCW3 ([facility]) Drug allergy apples Drug allergy anaphylaxis Active eCW3 ([facility]) Drug allergy walnuts/almonds Drug allergy anaphylaxis Active eCW3 ([facility]) Drug allergy strawberries Drug allergy anaphylaxis Active eCW3 ([facility]) Drug allergy apples Drug allergy anaphylaxis Active eCW3 ([facility]) Drug allergy walnuts/almonds Drug allergy anaphylaxis Active eCW3 ([facility]) Drug allergy strawberries Drug allergy anaphylaxis Active eCW3 ([facility]) Drug allergy apples Drug allergy anaphylaxis Active eCW3 ([facility]) Drug allergy walnuts/almonds Drug allergy anaphylaxis Active eCW3 ([facility]) Drug allergy strawberries Drug allergy anaphylaxis Active eCW3 ([facility]) Drug allergy apples Drug allergy anaphylaxis Active eCW3 ([facility]) Drug allergy walnuts/almonds Drug allergy anaphylaxis Active eCW3 ([facility]) Drug allergy strawberries Drug allergy anaphylaxis Active eCW3 ([facility]) Drug allergy apples Drug allergy anaphylaxis Active eCW3 ([facility]) Encounters Encounter Providers Location Date Indications Data Source(s ) (DentTx) [facility] 01/01/2019 eCW3 ([facility] 12:00:00 AM [facility] - [facility]) 01/01/2019 12:00:00 AM EST Est [place] [facility] 11/19/2018 eCW3 [facility] 12:00:00 AM [facility] y Indiv 30 min EDT - Care) 11/19/2018 12:00:00 AM EDT [facility] 2018 eCW3 ([facility] 12:00:00 AM [facility] EDT - [facility]) 2018 12:00:00 AM EDT [facility] 11/10/2018 eCW3 ([facility] 12:00:00 [facility] EDT - Care) 11/10/2018 12:00:00 AM EDT [facility] 11/08/2018 eCW3 [facility] 12:00:00 [facility] EDT - Care) 11/08/2018 12:00:00 AM EDT [facility] 11/07/2018 eCW3 [facility] 12:00:00 AM [facility] EDT - Care) 11/07/2018 12:00:00 AM EDT (DENTAL) [facility] 10/23/2018 eCW3 ([facility] 12:00:00 [facility] EDT - [facility]) 10/23/2018 12:00:00 AM EDT [facility] 10/13/2018 eCW3 ([facility] 12:00:00 AM [facility] EDT - Care) 10/13/2018 12:00:00 AM EDT [facility] 09/11/2018 eCW3 ([facility] 12:00:00 AM [facility] EDT - Care) 09/11/2018 12:00:00 AM EDT [facility] 09/10/2018 eCW3 ([facility] 12:00:00 AM [facility] EDT - Care) 09/10/2018 12:00:00 AM EDT [facility] 08/08/2018 eCW3 ([facility] 12:00:00 AM [facility] EDT - Care) 08/08/2018 12:00:00 AM EDT [facility] 06/03/2018 eCW3 ([facility] 12:00:00 AM [facility] EDT - Care) 06/03/2018 12:00:00 AM EDT [facility] 05/28/2018 eCW3 ([facility] [...] Brand Start Product Dose Route Administrative Pharmacy [facility] Indications Reaction Description Data Name Date Form [...] EDT Care) Vivitrol 380 MG Naltrexone Vivitr .0 active Vivitrol 380 eCW3 112 MG/ML ol 380 2019 {ml} MG ([facility] Injectable MG 12:00: [facility] Suspension 00 AM Health [Vivitrol] EDT Care) Vivitrol 380 MG Nicotine 4 Nicotr 11/08/ active Nicotrol 10 eCW3 MG/ACTUAT ol 10 2019 MG ([facility] Inhalant MG 12:00: [facility] Solution 00 AM Health [Nicotrol] EDT Care) Nicotrol 10 MG Naltrexone Vivitr .0 active Vivitrol 380 eCW3 112 MG/ML ol [...] EDT Care) Vivitrol 380 MG Naltrexone Vivitr .0 active Vivitrol 380 eCW3 112 MG/ML ol 380 2019 {ml} MG ([facility] Injectable MG 12:00: [facility] Suspension 00 AM Health [Vivitrol] EDT Care) Vivitrol 380 MG Naltrexone Vivitr .0 active Vivitrol 380 eCW3 112 MG/ML ol [...] EDT Care) Nicotrol 10 MG Naltrexone Vivitr .0 active Vivitrol 380 eCW3 112 MG/ML ol [...] EDT Care) Nicotrol 10 MG Naltrexone Vivitr .0 active Vivitrol 380 eCW3 112 MG/ML ol 380 2019 {ml} MG ([facility] Injectable MG 12:00: [facility] Suspension 00 AM Health [Vivitrol] EDT Care) Vivitrol 380 MG meloxicam Meloxi .0 active Meloxicam 15 eCW3 15 MG Oral cam 15 2018 {tabl MG ([facility] Tablet MG 12:00: et} [facility] Meloxicam 00 AM Health 15 MG EDT Care) Carmine Lithiu .0 active Carmine eCW 3 Carbonate m 2016 {tabl Carbonate ([facility] 300 MG Oral Carbon 12:00: et} 300 MG Ri bonita Tablet ate 00 AM Health 300 MG EDT Care) Carmine Lithiu .0 active Carmine eCW 3 Carbonate m 2016 {tabl Carbonate ([facility] 300 MG Oral Carbon 12:00: et} 300 MG Ri bonita Tablet ate 00 AM Health 300 MG EDT Care) Carmine Lithiu .0 active Carmine eCW 3 Carbonate m 2016 {tabl Carbonate ([facility] 300 MG Oral Carbon 12:00: et} 300 MG Ri bonita Tablet ate 00 AM Health 300 MG EDT Care) Carmine Lithiu .0 active Carmine eCW 3 Carbonate m 2017 {tabl Carbonate ([facility] 300 MG Oral Carbon 12:00: et} 300 MG Ri bonita Tablet ate 00 AM Health 300 MG EDT Care) 24 HR Wellbu .0 active Wellbutrin eC W3 Bupropion twyla 2017 {tabl XL 150 MG ([facility] Hydrochlori XL 150 12:00: et_in [place] er de 150 MG MG 00 AM _the_ Health Extended EDT morni Care) Release ng} Oral Tablet [Wellbutrin ] Wellbutrin XL 150 MG 24 HR Wellbu .0 active Wellbutrin eC W3 Bupropion twyla 2016 {tabl XL 150 MG ([facility] Hydrochlori [...] Tablet MG 00 AM Health BusPIRone EST Care) HCl 5 MG buspirone BusPIR .0 active BusPIRone eCW3 hydrochlori one 2015 {tabl HCl 5 MG (Hu dson de 5 MG HCl 5 12:00: et} [facility] Oral Tablet MG 00 AM Health BusPIRone EST Care) HCl 5 MG buspirone BusPIR .0 active BusPIRone eCW3 hydrochlori one 2015 {tabl HCl 5 MG (Hu dson de 5 MG HCl 5 12:00: et} [facility] Oral Tablet MG 00 AM Health BusPIRone EST Care) HCl 5 MG buspirone BusPIR .0 active BusPIRone eCW3 hydrochlori one 2016 {tabl HCl 5 MG (Hu dson de 5 MG HCl 5 12:00: et} [facility] Oral Tablet MG 00 AM Health BusPIRone EST Care) HCl 5 MG Zantac 150 UNK 1.0 [...] [facility] MG/0.3 00 AM Health EDT Care) Hydroxyzine Vistar 1.0 active Vistaril 50 eCW3 Pamoate 50 il 50 {caps mg ([facility] MG Oral mg ule_a [facility] Capsule s_ne Health [Vistaril] ded} Care) Vistaril 50 mg Hydroxyzine Vistar 1.0 active Vistaril 50 eCW3 Pamoate 50 il 50 {caps mg ([facility] MG Oral mg ule_a [facility] Capsule s_ne Health [Vistaril] ded} Care) Vistaril 50 mg Hydroxyzine Vistar 1.0 active Vistaril 50 eCW3 Pamoate 50 il 50 {caps MG ([facility] MG Oral MG ule_a [facility] Capsule s_ne Health [Vistaril] ded} Care) Vistaril 50 MG [...] ([facility] MG Oral mg ule_a [facility] Capsule s_[facility] [Vistaril] ded} Care) Vistaril 50 mg 24 HR Wellbu 1.0 active Wellbutrin eCW3 Bupropion twyla {tabl XL 300 MG ([facility] Hydrochlori XL 300 et_in [facility] de 300 MG MG _the_ Health Extended mor Care) Release ng} Oral Tablet [Wellbutrin ] Wellbutrin XL 300 MG Clonazepam Clonaz 1.0 active Clonazepam 1 eCW3 1 MG Oral epam 1 {tabl MG ([facility] Tablet MG et} [facility] Care) Prazosin 1 Prazos 1.0 active Prazosin H Cl eCW3 MG Oral in HCl {caps 1 MG ([facility] Capsule 1 MG ule_a [facility] Prazosin t_[facility] HCl 1 MG time} Care) Clonazepam Clonaz 1.0 active Clonazepam 2 eCW3 2 MG Oral epam 2 {tabl MG ([facility] Tablet MG et} [facility] Care) Hydroxyzine Vistar 1.0 active Vistaril 50 eCW3 Pamoate 50 il 50 {caps mg ([facility] MG Oral mg ule_a [facility] Capsule s_[facility] [Vistaril] ded} Care) Vistaril 50 mg quetiapine Seroqu 1.0 active Seroquel 5 0 eCW3 50 MG Oral el 50 {tabl MG ([facility] Tablet MG et_at [facility] [Seroquel] _[facility] Seroquel 50 marco} Care) MG quetiapine Seroqu 1.0 active Seroquel 5 0 eCW3 50 MG Oral el 50 {tabl MG ([facility] Tablet MG et_at [place] [Seroquel] _[facility] Seroquel 50 marco} Care) MG Hydroxyzine Vistar 1.0 active Vistaril 50 eCW3 Pamoate 50 il 50 {caps mg ([facility] MG Oral mg ule_a [facility] Capsule s_[facility] [Vistaril] ded} Care) Vistaril 50 mg Hydroxyzine Vistar 1.0 active Vistaril 50 eCW3 Pamoate 50 il 50 {caps mg ([facility] MG Oral mg ule_a [facility] Capsule s_[facility] [Vistaril] ded} Care) Vistaril 50 mg Prazosin 1 Prazos 1.0 active Prazosin H Cl eCW3 MG Oral in HCl {caps 1 MG ([facility] Capsule 1 MG ule_a [facility] Prazosin t_bed Health HCl 1 MG time} Care) quetiapine Seroqu 1.0 active Seroquel 5 0 eCW3 50 MG Oral el 50 {tabl MG ([facility] Tablet MG et_at [facility] [Seroquel] _[facility] Seroquel 50 marco} Care) MG Prazosin 1 [...] t_bed Health HCl 1 MG time} Care) Hydroxyzine Vistar 1.0 active Vistaril 50 eCW3 Pamoate 50 il 50 {caps mg ([facility] MG Oral mg ule_a [facility] Capsule s_[facility] [Vistaril] ded} Care) Vistaril 50 mg Clonazepam Clonaz 1.0 active Clonazepam 2 eCW3 2 MG Oral epam 2 {tabl MG ([facility] Tablet MG et} [facility]) Clonazepam Clonaz 1.0 active Clonazepam 1 eCW3 1 MG Oral epam 1 {tabl MG ([facility] Tablet MG et} [facility]) Prazosin 1 Prazos 1.0 active Prazosin H Cl eCW3 MG Oral in HCl {caps 1 MG ([facility] Capsule 1 MG ule_a [facility] Prazosin t_bed Health HCl 1 MG time} Care) Clonazepam Clonaz 1.0 active Clonazepam 1 eCW3 1 MG Oral epam 1 {tabl MG ([facility] Tablet MG et} [facility]) Hydroxyzine Vistar 1.0 active Vistaril 50 eCW3 Pamoate 50 il 50 {caps mg ([facility] MG Oral mg ule_a [facility] Capsule s_ne Health [Vistaril] ded} Care) Vistaril 50 mg Clonazepam Clonaz 1.0 active Clonazepam 2 eCW3 2 MG Oral epam 2 {tabl MG ([facility] Tablet MG et} [facility]) 24 HR Wellbu 1.0 active Wellbutrin eCW3 Bupropion twyla {tabl XL 150 MG ([facility] Hydrochlori XL 150 et_in [facility] de 150 MG MG _the_ Health Extended morni Care) Release ng} Oral Tablet [Wellbutrin ] Wellbutrin XL 150 MG Hydroxyzine Vistar 1.0 active Vistaril 50 eCW3 Pamoate 50 il 50 {caps MG ([facility] MG Oral MG ule_a [facility] Capsule [facility] [Vistaril] ded} Care) Vistaril 50 MG Clonazepam Clonaz 1.0 active Clonazepam 2 eCW3 2 MG Oral epam 2 {tabl MG ([facility] Tablet MG et} [facility] Care) gabapentin Gabape 1.0 active Gabapentin eCW3 800 MG Oral ntin {caps 800 MG ([facility] Tablet 800 MG ule} [place] Gabapentin [facility] 800 MG Care) Prazosin 1 Prazos 1.0 active Prazosin H Cl eCW3 MG Oral in HCl {caps 1 MG ([facility] Capsule 1 MG ule_a [place] Prazosin t_bed Health HCl 1 MG time} [...] 1 {tabl MG ([facility] Tablet MG et} [facility]) 24 HR Wellbu 1.0 active Wellbutrin eCW3 Bupropion twyla {tabl XL 300 MG ([facility] Hydrochlori XL 300 et_in [facility] de 300 MG MG _the_ Health Extended morni Care) Release ng} Oral Tablet [Wellbutrin ] Wellbutrin XL 300 MG Hydroxyzine Vistar 1.0 active Vistaril 50 eCW3 Pamoate 50 il 50 {caps mg ([facility] MG Oral mg ule_a [facility] Capsule s_ne Health [Vistaril] ded} Care) Vistaril 50 mg [...] MG ([facility] Tablet MG et_at [facility] [Seroquel] _[facility] Seroquel 50 marco} Care) MG 24 HR Wellbu 1.0 active Wellbutrin eCW3 Bupropion twyla {tabl XL 150 MG ([facility] son Hydrochlori XL 150 et_in [facility] de [...] 2 {tabl MG ([facility] Tablet MG et} [facility]) Hydroxyzine Vistar 1.0 active Vistaril 50 eCW3 Pamoate 50 il 50 {caps mg ([facility] MG Oral mg ule_a [facility] Capsule s_[facility] [Vistaril] ded} Care) Vistaril 50 mg Clonazepam Clonaz 1.0 active Clonazepam 1 eCW3 1 MG Oral epam 1 {tabl MG ([facility] Tablet MG et} [facility]) Clonazepam Clonaz 1.0 active Clonazepam 2 eCW3 2 MG Oral epam 2 {tabl MG ([facility] Tablet MG et} [facility]) Clonazepam Clonaz 1.0 active Clonazepam 2 eCW3 2 MG Oral epam 2 {tabl MG ([facility] Tablet MG et} [facility]) 24 HR Wellbu 1.0 active [...] 2 {tabl MG ([facility] Tablet MG et} [facility]) quetiapine Seroqu 1.0 active Seroquel 5 0 eCW3 50 MG Oral el 50 {tabl MG ([facility] Tablet MG et_at [facility] [Seroquel] _[facility] Seroquel 50 marco} Care) MG Hydroxyzine Vistar 1.0 active Vistaril 50 eCW3 Pamoate 50 il 50 {caps mg ([facility] MG Oral mg ule_a [facility] Capsule s_[facility] [Vistaril] ded} Care) Vistaril 50 mg Clonazepam Clonaz 1.0 active Clonazepam 2 eCW3 2 MG Oral epam 2 {tabl MG ([facility] Tablet MG et} [facility] Care) Albuterol Albute 2.0 active Albuterol e CW3 Sulfate HFA rol {puff Sulfate HFA ([facility] 108 (90 Sulfat s_as_ 108 (90 [facility]) e HFA neede Base) Health MCG/ACT 108 d} MCG/ACT Care) (90 Base) MCG/AC T quetiapine Seroqu 1.0 active Seroquel 5 0 eCW3 50 MG Oral el 50 {tabl MG ([facility] Tablet MG et_at [facility] [Seroquel] _[facility] Seroquel 50 marco} Care) MG quetiapine Seroqu 1.0 active Seroquel 5 0 eCW3 50 MG Oral el 50 {tabl MG ([facility] Tablet MG et_at [facility] [Seroquel] _[facility] Seroquel 50 marco} Care) MG Clonazepam Clonaz 1.0 active Clonazepam 2 eCW3 2 MG Oral epam 2 {tabl MG ([facility] Tablet MG et} [facility] Care) quetiapine Seroqu 1.0 active Seroquel 5 0 eCW3 50 MG Oral el 50 {tabl MG ([facility] Tablet MG et_at [facility] [Seroquel] _[facility] Seroquel 50 marco} Care) MG Hydroxyzine Vistar 1.0 active Vistaril 50 eCW3 Pamoate 50 il 50 {caps MG ([facility] MG Oral MG ule_a [facility] Capsule s_[facility] [Vistaril] ded} Care) Vistaril 50 MG quetiapine Seroqu 1.0 active Seroquel 5 0 eCW3 50 MG Oral el 50 {tabl MG ([facility] Tablet MG et_at [facility] [Seroquel] _[facility] Seroquel 50 marco} Care) MG quetiapine Seroqu 1.0 active Seroquel 5 0 eCW3 50 MG Oral el 50 {tabl MG ([facility] Tablet MG et_at [facility] [Seroquel] _[facility] Seroquel 50 marco} Care) MG Clonazepam Clonaz 1.0 active Clonazepam 2 eCW3 2 MG Oral epam 2 {tabl MG ([facility] Tablet MG et} [facility]) quetiapine Seroqu 1.0 active Seroquel 5 0 eCW3 50 MG Oral el 50 {tabl MG ([facility] Tablet MG et_at [facility] [Seroquel] _[facility] Seroquel 50 marco} Care) MG Clonazepam Clonaz 1.0 active Clonazepam 2 eCW3 2 MG Oral epam 2 {tabl MG ([facility] Tablet MG et} [facility]) 24 HR Wellbu 1.0 active [...] Tablet [Wellbutrin ] Wellbutrin XL 150 MG Insurance Providers Payer name Policy type Policy ID Covered Covered republican's Policy P chloe / Coverage republican ID relationship to Barrera Inf ormation type barrera [facility] [id number] HEALTH NON CAP Problems, Conditions, and Diagnoses Code Display Name Description Problem Effective Data Type Dates Source(s) S41.101D Open wound of right Open wound of right Problem 020 eCW3 ([facility] upper arm, upper arm, 12:00:00 AM [facility] subsequent encounter subsequent EDT Care ) encounter Z86.39 History of thyroid History of thyroid Problem 9 eCW3 ([facility] disease disease 12:00:00 AM [facility] EST Care) F41.1 Generalized anxiety Generalized anxiety Problem 019 eCW3 ([facility] disorder disorder 12:00:00 AM [facility] EDT Care) F41.1 Generalized anxiety Generalized anxiety Problem 019 eCW3 ([facility] disorder disorder 12:00:00 AM [facility] EDT Care) F17.200 Tobacco dependence Tobacco dependence Problem 9 eCW3 ([facility] 12:00:00 AM [facility] EDT Care) F10.20 Alcohol use Alcohol use Problem 11/08/2018 eCW3 ([facility] disorder, moderate, disorder, moderate, 12:00:0 0 AM [facility] dependence dependence EDT Care) F17.200 Tobacco dependence Tobacco dependence Problem 9 eCW3 ([facility] 12:00:00 AM [facility] EDT Care) F31.60 Bipolar affective Bipolar affective Problem 10/02/2016 eCW3 ([facility] disorder, current disorder, current 12:00:00 AM [facility] episode mixed, episode mixed, EDT Care) current episode current episode severity unspecified severity unspecified F31.60 Bipolar affective Bipolar affective Problem 10/02/2016 eCW3 ([facility] disorder, current disorder, current 12:00:00 AM [facility] episode mixed, episode mixed, EDT Care) current episode current episode severity unspecified severity unspecified F41.1 KENNETH (generalized KENNETH (generalized Problem 06/08/2016 eC W3 ([facility] anxiety disorder) anxiety disorder) 12:00:00 AM [facility] EDT Care) F41.1 KENNETH (generalized KENNETH (generalized Problem 06/08/2016 eC W3 ([facility] anxiety disorder) anxiety disorder) 12:00:00 AM [facility] EDT Care) F31.81 Bipolar II disorder Bipolar II disorder Problem 11/04/2 016 eCW3 ([facility] 12:00:00 [facility] EDT Care) F63.9 [...] ([facility] 12:00:00 [facility] EDT Care) F63.9 Impulse disorder, Impulse disorder, Problem 07/18/2015 eCW3 ([facility] unspecified unspecified 12:00:00 [facility] ED[facility]) E05.90 Thyrotoxicosis, Thyrotoxicosis, Problem 03/02/2015 [...] EDT Care) Results ID Date Data Source [id number] 10/30/2019 03:15:00 PM EDT [facility] Name Value Range Interpretation Code Description Data Kayy rce(s) Supporting Document(s ) SARS-COV-2 [facility] RESP Diagnostics QL LEANDRA+PROBE This lab was ordered by [facility] and reported by [facility]. ID Date Data Source [id number] 10/06/2019 12:34:00 PM EDT [facility] Name Value Range Interpretation Description Data Sup porting Code Source(s) Document(s ) 2019 Novel [facility] Coronavirus RNA Interpretation Unspecified Specimen Qualitative LEANDRA Probe Detection This lab was ordered by [facility] at [place] [id number] and reported by [facility]. Procedure Social History Code Duration Value [...] completed Current Smoker eCW3 ( [facility]) Current Smoker completed Current Smoker eCW3 ( [facility]) Current Smoker completed Current Smoker eCW3 ( [facility]) Current Smoker completed Current Smoker eCW3 ( [facility]) Current Smoker completed Current Smoker eCW3 ( [facility]) Current Smoker completed Current Smoker eCW3 ( [facility]) Current Smoker completed Current Smoker eCW3 ( [facility]) Current Smoker completed Current Smoker eCW3 ( [facility]) Current Smoker completed Current Smoker eCW3 ( [facility]) Current Smoker completed Current Smoker eCW3 ( [facility]) Current Smoker completed Current Smoker eCW3 ( [facility]) Current Smoker completed Current Smoker eCW3 ( [facility]) Current Smoker completed Current Smoker eCW3 ( [facility]) Vital Signs ID Date Data Source UNK Name Value Range Interpretation Code Description Data Source(s) Diastolic blood 83 mm[Hg] 83 mm[Hg] eCW3 ([facility]) Systolic blood 131 mm[Hg] 131 mm[Hg] eCW3 ([facility]) Body temperature 99.0 [degF] 99.0 [degF] eCW3 ( [facility]) Heart rate 18 /min 18 /min eCW3 ([facility]) Body mass index 22.38 kg/m2 22.38 kg/m2 eCW3 ([facility] (BMI) [Ratio] [facility]) Body weight 156 [lb_av] 156 [lb_av] eCW3 ([facility]) Body height [in_i] eCW3 ([facility]) Diastolic blood 80 mm[Hg] 80 mm[Hg] eCW3 ([facility]) Systolic blood 120 mm[Hg] 120 mm[Hg] eCW3 ([facility]) Body temperature 98.8 [degF] 98.8 [degF] eCW3 ( [facility]) Heart rate 18 /min 18 /min eCW3 ([facility]) Body mass index 22.38 kg/m2 22.38 kg/m2 eCW3 ([facility] (BMI) [Ratio] [facility]) Body weight 156 [lb_av] 156 [lb_av] eCW3 ([facility]) Body height [in_i] eCW3 ([facility]) Diastolic blood 89 mm[Hg] 89 mm[Hg] eCW3 ([facility]) Systolic blood 131 mm[Hg] 131 mm[Hg] eCW3 ([facility]) Body temperature 97.8 [degF] 97.8 [degF] eCW3 ( [facility]) Heart rate 18 /min 18 /min eCW3 ([facility]) Body weight 160 [lb_av] 160 [lb_av] eCW3 ([facility]) Diastolic blood 93 mm[Hg] 93 mm[Hg] eCW3 ([facility]) Systolic blood 139 mm[Hg] 139 mm[Hg] eCW3 ([facility]) Body temperature 97.9 [degF] 97.9 [degF] eCW3 ( [facility]) Heart rate 18 /min 18 /min eCW3 ([facility]) Body mass index 22.67 kg/m2 22.67 kg/m2 eCW3 ([facility] (BMI) [Ratio] [facility]) Body weight 158 [lb_av] 158 [lb_av] eCW3 ([facility]) Body height [in_i] eCW3 ([facility]) Diastolic blood 86 mm[Hg] 86 mm[Hg] eCW3 ([facility]) Systolic blood 131 mm[Hg] 131 mm[Hg] eCW3 ([facility]) Heart rate 16 /min 16 /min eCW3 ([facility]) Body height [in_i] eCW3 ([facility]) Patient Treatment Plan of Care Planned Activity Planned Date Details Description Data Source (s) Gauze Bandages - 06/03/2019 12:00:00 eCW3 ([facility]) Gauze Bandage 3" - 06/03/2019 12:00:00 eC W3 ([facility]) Gauze Bandages - 06/03/2019 12:00:00 eCW3 ([facility]) Gauze Bandage 3" - 06/03/2019 12:00:00 eC W3 ([facility]) Gauze Bandages - 06/03/2019 12:00:00 eCW3 ([facility]) Gauze Bandage 3" - 06/03/2019 12:00:00 eC W3 ([facility]) Gauze Bandages - 06/03/2019 12:00:00 eCW3 ([facility]) Gauze Bandage 3" - 06/03/2019 12:00:00 eC W3 ([facility]) Gauze Bandages - 06/03/2019 12:00:00 eCW3 ([facility]) Gauze Bandage 3" - 06/03/2019 12:00:00 eC W3 ([facility]) Gauze Bandages - 06/03/2019 12:00:00 eCW3 ([facility]) Gauze Bandage 3" - 06/03/2019 12:00:00 eC W3 ([facility]) Gauze Bandages - 06/03/2019 12:00:00 eCW3 ([facility]) Gauze Bandage 3" - 06/03/2019 12:00:00 eC W3 ([facility]) Gauze Bandages - 06/03/2019 12:00:00 eCW3 ([facility]) Gauze Bandage 3" - 06/03/2019 12:00:00 eC W3 ([facility]) Gauze Bandages - 06/03/2019 12:00:00 eCW3 ([facility]) Gauze Bandage 3" - 06/03/2019 12:00:00 eC W3 ([facility]) Gauze Bandages - 06/03/2019 12:00:00 eCW3 ([facility]) Naproxen 250 MG Oral 06/03/2019 12:00:00 eCW3 ([facility]t [facility]) Gauze Bandage 3" - 06/03/2019 12:00:00 eC W3 ([facility]) bacitracin zinc 0.5 06/03/2019 12:00:00 e CW3 ([facility] UNT/MG Topical Ointment AM EDT Heal th [...] 11/08/2018 12:00:00 eCW3 ([facility] Injectable Suspension [facility]) [Vivitrol] EPINEPHrine 0.3 MG/0.3ML 12/03/2014 12:00:00 eCW3 ([facility]) EPINEPHrine 0.3 MG/0.3ML 12/03/2014 12:00:00 eCW3 ([facility]) EPINEPHrine 0.3 MG/0.3ML 12/03/2014 12:00:00 eCW3 ([facility]) EPINEPHrine 0.3 MG/0.3ML 12/03/2014 12:00:00 eCW3 ([facility] EDT [facility]) EPINEPHrine 0.3 MG/0.3ML 12/03/2014 12:00:00 eCW3 ([facility]) EPINEPHrine 0.3 MG/0.3ML 12/03/2014 12:00:00 eCW3 ([facility]) EPINEPHrine 0.3 MG/0.3ML 12/03/2014 12:00:00 eCW3 ([facility]) EPINEPHrine 0.3 MG/0.3ML 12/03/2014 12:00:00 eCW3 ([facility]) EPINEPHrine 0.3 MG/0.3ML 12/03/2014 12:00:00 eCW3 ([facility]) EPINEPHrine 0.3 MG/0.3ML 12/03/2014 12:00:00 eCW3 ([facility]) Clonazepam 1 MG Oral eCW3 ([facility]) 24 HR Bupropion eCW3 ([facility] Hydrochloride 300 MG [facility]) Extended Release Oral Tablet [Wellbutrin] Hydroxyzine Pamoate 50 MG eC W3 ([facility] Oral Capsule [Vistaril] [facility]) Prazosin 1 MG Oral eCW3 ([facility] Capsule [facility]) Clonazepam 2 MG Oral eCW3 ([facility]) 24 HR Bupropion eCW3 ([facility] Hydrochloride 150 MG [facility]) Extended Release Oral Tablet [Wellbutrin] Hydroxyzine Pamoate 50 MG eC W3 ([facility] Capsule [Vistaril] [facility]) quetiapine 50 MG Oral eCW3 ( [facility] Tablet [Seroquel] [facility] Car e) Prazosin 1 MG Oral eCW3 ([facility]) Clonazepam 2 MG Oral eCW3 ([facility]) 24 HR Bupropion eCW3 ([facility] Hydrochloride 150 MG [facility]) Extended Release Oral Tablet [Wellbutrin] Hydroxyzine Pamoate 50 MG eC W3 ([facility] Oral Capsule [Vistaril] [facility]) quetiapine 50 MG Oral eCW3 ( [facility] Tablet [Seroquel] [facility] e) Prazosin 1 MG Oral eCW3 ([facility]) Clonazepam 2 MG Oral eCW3 ([facility]) 24 HR Bupropion eCW3 ([facility] Hydrochloride 150 MG [facility]) Extended Release Oral Tablet [Wellbutrin] Hydroxyzine Pamoate 50 MG eC W3 ([facility] Oral Capsule [Vistaril] [facility]) quetiapine 50 MG Oral eCW3 ( [facility] Tablet [Seroquel] [facility] e) Prazosin 1 MG Oral eCW3 ([facility]) Clonazepam 2 MG Oral eCW3 ([facility]) 24 HR Bupropion eCW3 ([facility] Hydrochloride 150 MG [facility]) Extended Release Oral Tablet [Wellbutrin] Hydroxyzine Pamoate 50 MG eC W3 ([facility] Oral Capsule [Vistaril] [facility]) quetiapine 50 MG Oral eCW3 ( [facility] Tablet [Seroquel] [facility] Car e) Prazosin 1 MG Oral eCW3 ([facility]) Clonazepam 2 MG Oral eCW3 ([facility]) 24 HR Bupropion eCW3 ([facility] Hydrochloride 150 MG [facility]) Extended Release Oral Tablet [Wellbutrin] Hydroxyzine Pamoate 50 MG eC W3 ([facility] Oral Capsule [Vistaril] [facility]) quetiapine 50 MG Oral eCW3 ( [facility] Tablet [Seroquel] [facility] Car e) Prazosin 1 MG Oral eCW3 ([facility]) Clonazepam 2 MG Oral eCW3 ([facility]) 24 HR Bupropion eCW3 ([facility] Hydrochloride 150 MG [facility]) Extended Release Oral Tablet [Wellbutrin] Hydroxyzine Pamoate 50 MG eC W3 ([facility] Oral Capsule [Vistaril] [facility]) quetiapine 50 MG Oral eCW3 ( [facility] Tablet [Seroquel] [facility] Car e) Prazosin 1 MG Oral eCW3 ([facility]) Clonazepam 2 MG Oral eCW3 ([facility]) 24 HR Bupropion eCW3 ([facility] Hydrochloride 150 MG [facility]) Extended Release Oral Tablet [Wellbutrin] Hydroxyzine Pamoate 50 MG eC W3 ([facility] Oral Capsule [Vistaril] [facility]) quetiapine 50 MG Oral eCW3 ( [facility] Tablet [Seroquel] Health Car e) Prazosin 1 MG Oral eCW3 ([facility]) Clonazepam 2 MG Oral eCW3 ([facility]) 24 HR Bupropion eCW3 ([facility] Hydrochloride 150 MG [facility]) Extended Release Oral Tablet [Wellbutrin] Hydroxyzine Pamoate 50 MG eC W3 ([facility] Oral Capsule [Vistaril] [facility]) quetiapine 50 MG Oral eCW3 ( [facility] Tablet [Seroquel] Health Car e) Prazosin 1 MG Oral eCW3 ([facility]) Clonazepam 2 [...] Tablet [Wellbutrin] Prazosin 1 MG Oral eCW3 ([facility]) Clonazepam 2 MG Oral eCW3 ([facility]) Hydroxyzine Pamoate 50 MG eC W3 ([facility] Oral Capsule [Vistaril] [facility]) 24 HR Bupropion eCW3 ([facility] Hydrochloride 300 MG [facility]) Extended Release Oral Tablet [Wellbutrin]
[2019-11-30] MEDS ORDERED: TUBERCULIN PPD 5 TU/0.1ML VIAL ID ONE (22:21)
[2019-11-30] MEDS: MELATONIN 5 MG TABLETS PO SCH (22:45)
[2019-11-30] MEDS: THIAMINE HCL 100 MG TABLET (FP) PO SCH (22:45)
--- NOTE | 2019-12-01 09:55 | EKG ---
Test Reason : Blood Pressure : / mmHG Vent. Rate : 063 BPM Atrial Rate : 063 BPM P-R Int : 140 ms QRS Dur : 086 ms QT Int : 404 ms P-R-T Axes : 020 058 053 degrees QTc Int : 413 ms NORMAL SINUS RHYTHM NORMAL ECG WHEN COMPARED WITH ECG OF 27-SEP-2017 22:25, NO SIGNIFICANT CHANGE WAS FOUND Confirmed by Jeovanny Bravo MD ([id number]) on 12/01/2019 9:54:25 AM Referred By: MAUREEN RAUSCH Confirmed By:Jeovanny Bravo MD
[2019-12-01] MEDS: PRENATAL VITAMINS W/ FOLIC ACID TABLET (FP) PO SCH (10:17)
[2019-12-01] MEDS: NICOTINE 14 MG/24 HOURS TOPICAL PATCH TD SCH (10:17)
[2019-12-01 10:21] LABS: HEMATOCRIT 36.4 % (35.4-49); HEMOGLOBIN 11.7 GM/dL (11.7-16.9); MCH 25.9 pg (25.7-33.7); MEAN CELL VOLUME 80.8 fl (80-96); PLATELET COUNT 295 K/MM3 (134-434); RBC 4.51 M/mm3 (4.00-5.60); RDW 18.7 % (11.9-15.9); WHITE BLOOD COUNT 7.8 K/mm3 (4.0-10.0)
[2019-12-01 10:33] LABS: ALBUMIN 3.2 g/dl (3.4-5.0); BLOOD UREA NITROGEN 18.6 mg/dL (7-18); CALCIUM 8.7 mg/dL (8.5-10.1); CREATININE 1.3 mg/dL (0.55-1.3); POTASSIUM 3.8 mmol/L (3.5-5.1)
[2019-12-01 10:37] LABS: BILIRUBIN,TOTAL 0.4 mg/dL (0.2-1); TOT PROT 6.5 g/dl (6.4-8.2)
--- NOTE | 2019-12-01 11:57 | PN ---
[facility] Progress Note Note: Pt is a 34 y/o male with a hx of alcohol, cocaine use disorder admitted to rehab yesterday through [facility]. PMHx:Hyperthyroidism(not on med-pt states "it was a misdiagnosis"); Lactose intolerance PsyHx:Bipolar Disorder, PTSD(not on psych meds) Vital Signs - 24 hr 11/30/19 11/30/19 11/30/19 20:13 22:30 22:32 Temperature 96.4 F L 97.8 F Pulse Rate 72 63 Respiratory 16 18 Rate Blood Pressure 129/88 149/97 152/90 O2 Sat by Pulse 98 Oximetry (%) 12/01/19 06:45 Temperature Pulse Rate Respiratory Rate Blood Pressure 152/90 O2 Sat by Pulse Oximetry (%) Laboratory Tests 11/30/19 11/30/19 11/30/19 07:00 07:00 07:00 WBC 7.8 RBC 4.51 Hgb 11.7 Hct 36.4 MCV 80.8 MCH 25.9 D MCHC 32.0 RDW 18.7 H Plt Count 295 D MPV 9.0 Sodium 138 Potassium 3.8 Chloride 103 Carbon Dioxide 24 Anion Gap 11 BUN 18.6 H Creatinine 1.3 Est GFR (CKD-EPI)AfAm 81.93 Est GFR (CKD-EPI)NonAf 70.69 Random Glucose 115 H Calcium 8.7 Total Bilirubin 0.4 AST 28 ALT 26 Alkaline Phosphatase 69 Total Protein 6.5 Albumin 3.2 L Syphilis Serology Non-reactive SARS-CoV-2 (PCR) 11/30/19 15:50 WBC RBC Hgb Hct MCV MCH MCHC RDW Plt Count MPV Sodium Potassium Chloride Carbon Dioxide Anion Gap BUN Creatinine Est GFR (CKD-EPI)AfAm Est GFR (CKD-EPI)NonAf Random Glucose Calcium Total Bilirubin AST ALT Alkaline Phosphatase Total Protein Albumin Syphilis Serology SARS-CoV-2 (PCR) Negative Alert o x 3 nad oob ambulating with steady gait Extremities;no edema,skin intact. MELL[facility] New Rehab Pt increase po fluids Lactaid Milk with meals Maintain safety
[2019-12-01 12:11] LABS: SICKLE CELL SCREEN NEGATIVE (NEGATIVE)
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
[2019-12-01] MEDS ORDERED: hydrOXYzine PAMOATE 25 MG CAPSULE (FP) PO PRN (13:56)
[2019-12-01] MEDS: MIRTAZAPINE 15 MG TABLET (FP) PO SCH (21:07)
[2019-12-01] MEDS: PRAZOSIN HCL 1 MG CAPSULE PO SCH (21:07)
[2019-12-01] MEDS: MELATONIN 5 MG TABLETS PO SCH (21:08)
[2019-12-01] MEDS: THIAMINE HCL 100 MG TABLET (FP) PO SCH (21:08)
[2019-12-02] MEDS: NICOTINE 14 MG/24 HOURS TOPICAL PATCH TD SCH (10:24)
[2019-12-02] MEDS: PRENATAL VITAMINS W/ FOLIC ACID TABLET (FP) PO SCH (10:24)
[2019-12-02 18:49] LABS: PH,URINE 7.5 (5.0-8.0); URINE APPEARANCE CLEAR; URINE BILIRUBIN NEGATIVE (NEGATIVE); URINE COLOR YELLOW; URINE GLUCOSE (UA) NEGATIVE (NEGATIVE); URINE KETONE NEGATIVE (NEGATIVE); URINE LEUK ESTERASE NEGATIVE (NEGATIVE); URINE NITRITE NEGATIVE (NEGATIVE); URINE PROTEIN NEGATIVE (NEGATIVE); URINE UROBILINOGEN 0.2 mg/dL (0.2-1.0)
[2019-12-02] MEDS: PRAZOSIN HCL 1 MG CAPSULE PO SCH (21:15)
[2019-12-02] MEDS: MELATONIN 5 MG TABLETS PO SCH (21:15)
[2019-12-02] MEDS: MIRTAZAPINE 15 MG TABLET (FP) PO SCH (21:15)
[2019-12-02] MEDS: THIAMINE HCL 100 MG TABLET (FP) PO SCH (21:16)
[2019-12-03 07:47] VITALS: BP 125/75; PULSE 86; TEMP 97.3
[2019-12-03] MEDS: PRENATAL VITAMINS W/ FOLIC ACID TABLET (FP) PO SCH (09:56)
[2019-12-03] MEDS: NICOTINE 14 MG/24 HOURS TOPICAL PATCH TD SCH (09:56)
[2019-12-03] MEDS: MELATONIN 5 MG TABLETS PO SCH (21:11)
[2019-12-03] MEDS: MIRTAZAPINE 15 MG TABLET (FP) PO SCH (21:11)
[2019-12-03] MEDS: PRAZOSIN HCL 1 MG CAPSULE PO SCH (21:11)
[2019-12-03] MEDS: THIAMINE HCL 100 MG TABLET (FP) PO SCH (21:11)
[2019-12-04] MEDS: NICOTINE 14 MG/24 HOURS TOPICAL PATCH TD SCH (09:54)
[2019-12-04] MEDS: PRENATAL VITAMINS W/ FOLIC ACID TABLET (FP) PO SCH (09:54)
[2019-12-04] MEDS: MIRTAZAPINE 15 MG TABLET (FP) PO SCH (21:21)
[2019-12-04] MEDS: THIAMINE HCL 100 MG TABLET (FP) PO SCH (21:21)
[2019-12-04] MEDS: PRAZOSIN HCL 1 MG CAPSULE PO SCH (21:21)
[2019-12-04] MEDS: MELATONIN 5 MG TABLETS PO SCH (21:22)
[2019-12-05] MEDS: PRENATAL VITAMINS W/ FOLIC ACID TABLET (FP) PO SCH (10:21)
[2019-12-05] MEDS: NICOTINE 14 MG/24 HOURS TOPICAL PATCH TD SCH (10:21)
--- NOTE | 2019-12-05 10:47 | DS ---
[facility] Detox Discharge Summary Admission Date: 11/30/19 Discharge Date: 12/05/19 - History Present History: Alcohol Dependence, Cocaine Dependence Additional Comments: alert,oriented x 3 ambulation on the unit lung clear,on auscultation bilaterally abdomen soft,no distension no tenderness stable for discharge today follow up with after care program as arrangement by counselor patient will be discharge on regular diet,activity as tolerated patient has all medications with him please note that this discharge summary is for rehab discharge summary Pertinent Past History: bipolar disorder ptsd - Physical Exam Results Vital Signs: Vital Signs Temperature 97.3 F L 12/03/19 07:01 Pulse Rate 86 12/03/19 07:01 Respiratory Rate 18 12/03/19 07:01 Blood Pressure 125/75 12/03/19 07:01 O2 Sat by Pulse Oximetry (%) 98 12/05/19 06:43 Pertinent Admission Physical Exam Findings: alert,oriented ambulation on the unit motivation for rehab and for better life - Medication Discharge Medications: Ambulatory Orders Mirtazapine [Remeron -] 15 mg PO HS 09/27/17 Prazosin HCl [Minipress] 1 mg PO HS 11/30/19 clonazePAM [Klonopin -] 1 mg PO HS 11/30/19 - Diagnosis (1) Alcohol dependence Status: Acute (2) Cocaine dependence Status: Acute Qualifiers: Substance use status: uncomplicated Qualified Code(s): F14.20 - Cocaine dependence, uncomplicated (3) Bipolar disorder Status: Chronic Qualifiers: Active/Remission status: remission status unspecified Qualified Code(s): F31.9 - Bipolar disorder, unspecified (4) PTSD (post-traumatic stress disorder) Status: Chronic - AMA Did Patient Leave Against Medical Advice: No
--- NOTE | 2019-12-05 10:47 | PN ---
[facility] Progress Note Note: patient would like to leave stated he felt much better Vital Signs Temperature 97.3 F L 12/03/19 07:01 Pulse Rate 86 12/03/19 07:01 Respiratory Rate 18 12/03/19 07:01 Blood Pressure 125/75 12/03/19 07:01 O2 Sat by Pulse Oximetry (%) 98 12/05/19 06:43 alert,oriented x 3 ambulation on the unit lung clear on auscultation bilaterally abdomen soft,no pain,no tenderness no edema of legs stable for discharge follow up with after care program as arrangement by counselor total time spending on discharge 35 minutes
--- NOTE | 2019-12-06 19:38 | DS ---
[facility] Rehab Discharge Summary - [facility] Rehab Discharge Summary Admission Date: 11/30/19 Discharge Date: 12/05/19 - History Present History: Alcohol dependence, Cocaine dependence Pertinent Past History: bipolar disorder ptsd - Discharge Physical Exam Vital Signs: Vital Signs Temperature 97.3 F L 12/03/19 07:01 Pulse Rate 86 12/03/19 07:01 Respiratory Rate 18 12/03/19 07:01 Blood Pressure 125/75 12/03/19 07:01 O2 Sat by Pulse Oximetry (%) 98 12/05/19 06:43 Pertinent Admission Physical Exam Findings: alert,oriented x 3 ambulation on the unit motivated to step up for better life - Treatment Discharge Condition: Discharge condition good, Rehabilitated safely, Responded well, Outpatient referral accepted - Medication Discharge Medications: Ambulatory Orders Mirtazapine [Remeron -] 15 mg PO HS 09/27/17 Prazosin HCl [Minipress] 1 mg PO HS 11/30/19 clonazePAM [Klonopin -] 1 mg PO HS 11/30/19 - Medication-Assisted Treatment (MAT) Medication-Assisted Treatment (MAT): No - Discharge Instructions Diet, activity, other medical instructions: Diet: Activity: Other medical instructions: - Diagnosis (1) Alcohol dependence Status: Acute (2) Cocaine dependence Status: Acute Qualifiers: Substance use status: uncomplicated Qualified Code(s): F14.20 - Cocaine dependence, uncomplicated (3) Bipolar disorder Status: Chronic Qualifiers: Active/Remission status: remission status unspecified Qualified Code(s): F31.9 - Bipolar disorder, unspecified (4) PTSD (post-traumatic stress disorder) Status: Chronic - Follow-up Referral Minutes to complete discharge: 35 - AMA Did Patient Leave Against Medical Advice: No Additional Comments: alert,oriented x3 ambulation on the unit lung clear on auscultation bilaterally no abdominal pain no tenderness stable for discharge follow up with after care program as arrangement by counselor has all his medication at home
--- NOTE | 2019-12-06 19:42 | PN ---
S Progress Note Note: please disregard the note on this patient s detox summary discharge on 12/05/19 at 10.47 am documentation on the wrong format
== END 2019-12-05 11:00 | disposition home or self-care (01) | DRG 772 ==
LOC: YASAS 14:50 → Y5N 21:10
PROVIDERS: ADMIT Allergy & Immunology; ATTEND Allergy & Immunology
PROC: HZ42ZZZ Group Counseling for Substance Abuse Treatment, Cognitive-Behavioral (ICD-10-PCS; principal; 2019-11-30)
DX: F10.20 Alcohol dependence, uncomplicated (principal); F14.20 Cocaine dependence, uncomplicated; F17.210 Nicotine dependence, cigarettes, uncomplicated; F31.9 Bipolar disorder, unspecified; F19.280 Other psychoactive substance dependence with psychoactive substance-induced anxiety disorder; F19.282 Other psychoactive substance dependence with psychoactive substance-induced sleep disorder; F90.9 Attention-deficit hyperactivity disorder, unspecified type; Z62.810 Personal history of physical and sexual abuse in childhood; Z91.410 Personal history of adult physical and sexual abuse; Z98.890 Other specified postprocedural states; Z91.011 Allergy to milk products; Z91.018 Allergy to other foods; Z59.0 Homelessness
CPT/HCPCS: 36415; 80053; 81003; 85027; 85660; 86780; 93005; 93010; C9803; U0003